=== PATIENT | male | born 1940 | race Caucasian/White ===

== ENCOUNTER 2018-08-27 10:21 | Emergency (ER) | payer MEDICARE, BC ==
--- OUTSIDE RECORDS SUMMARY | 2018-08-27 10:27 | XMS REPORT | Continuity of Care Document ---
:1940 External Reference #:[id number] Author Name Jessica Xena Care Team Providers Name Role Phone Dedrick Coronado MD Primary Care Physician Unavailable Payers Date Identification Numbers Payment Provider Subscriber Effective: 2007 Policy Number: [id number] Medicare Kelly Gonzalez PayID: [id number] [address] [place] [address] Policy Number: [id number] [facility] Lilli Gonzalez Group Number: [id number] [address] PayID: [id number] [place] [address] Advance Directives Description No Information Available Problems Date Description Provider Status Onset: 08/07/2011 Electrocardiogram abnormal Forest Monique M.D. Onset: 08/07/2011 Benign essential hypertension Forest Monique M.D. Onset: 08/07/2011 Mitral valve disorder Forest Monique M.D. Onset: 08/07/2011 Aortic valve disorder Forest Monique M.D. Onset: 08/07/2011 Mixed hyperlipidemia Forest Monique M.D. Onset: 03/08/2012 Preoperative cardiovascular Forest Monique examination Abhilash Onset: 05/11/2014 Dyssomnia Lyly Silverio MD Active Onset: 05/11/2014 Chronic pansinusitis Lyly Silverio MD Active Onset: 05/11/2014 Obesity Lyly Silverio MD Active Onset: 09/06/2014 Obstructive sleep apnea syndrome Malou Diallo DNP, RN, Active [employer]- Family History Date Family Member(s) Observation Comments General Heart Disease General Cancer General Diabetes : (age 76 Father due to Cancer, Years) Colon : (age 86 Mother due to Stroke hypertension,cardiomega Years) ly Social History Type Date Description Comments Sex Unknown Marital Status Lives With Occupation Retired Tobacco Use Start: Unknown Never Smoked Cigarettes ETOH Use Denies alcohol use Tobacco Use Start: Unknown Patient has never smoked Recreational Drug Use Denies Drug Use Smoking Status Reviewed: 08/12/18 Patient has never smoked Exercise Type/Frequency Exercises sporadically Allergies, Adverse Reactions, Alerts Date Description Reaction Status Severity Comments 12/08/2013 Tape Active Paper Tape 09/14/2017 Environmental Active Tree pollen, grass 11/03/2007 NKDA Inactive Medications Medication Date Status Form Strength Qnty SIG Indications Ordering Provider Claritin D 07/20/19 Active Capsules 10mg as needed Iesha 15 Bernardo Romero M.D. Furosemide 05/10/19 Active 20mg 1 tablet Unknown 15 po three times daily Toprol XL 05/10/19 Active 100mg 1 po qd Unknown 15 Lovastatin 07/11/19 Active Tablets 40mg 90tab 1 po qhs Qutaybeh 09 s Bernardo Romero M.D. Fish Oil Active Capsules 1000mg 90cap 1 PO qd Unknown 00 s Aspirin Active Chewtabs 81mg 30uni 1 po bid Unknown 00 ts Systane Active Solution 0.4-0.3% as Unknown 00 directed Vitamin D Active Tablets 400Unit 30tab 1 po bid Unknown 00 s Multivitamins Active Tablets 90tab 1 po qd Unknown 00 s Amoxicillin Active Tablets 500mg 4tabs Take 4 Bobby 00 tabs by [place], mouth 1 M.D. hour before invasive procedure and dental work Irbesartan Active Tablets 300mg 1 by mouth Unknown 00 every day Metamucil Active Powder 1 tsp with Unknown 00 water daily Coricidin HBP Active as Unknown Nighttime 00 directed Multi-Symptom prn Cold Triple [place] Active 1 po qhs Unknown Complex 00 Amlodipine Active Tablets 5mg 1 tablet Shallish, Besylate 00 po daily MD Dedrick Cpap Active Device Unknown 00 Mometasone Active Suspension 50mcg/Act use 2 Unknown Furoate 00 spray in each nostril daily Azelastine HCL Active Solution 0.1% spray 2 Unknown (Nasal) 00 spray in each nostril two times a day as needed Tylenol PM Active Tablets 2 daily as Unknown 00 needed Allergy Active Once every Unknown Injections 00 two weeks Tylenol PM 07/20/19 Hx Liquid 1000-50mg 2 by mouth Qutaybeh Extra Strength 15 - /30ML every S. Unknown [facility] at [facility] bed[facility] , M.D. prn Pataday 05/10/19 Hx 1 gtt each Unknown 15 - eye q a.m. 02/09/20 17 Amlodipine 05/10/19 Hx 10mg 1 po qd Unknown Besylate 15 - 03/03/20 15 Flexeril 01/30/20 Hx Tablets 5mg 40tab 1-2 tablet Dirk 14 - s PO as Willian, 05/10/19 needed M.D. 15 muscle pain Lucernemines 01/29/20 Hx Tablets 5-325mg 60tab 1-2 by Heladio 14 - s mouth Young, 05/10/19 every 4 to M.D. 15 6 hours as needed pain Percocet 12/14/19 Hx Tablets 5-325mg 40tab 1-2 by Dirk 14 - s mouth bid Willian, 05/10/19 as needed M.D. 15 pain Amoxicillin 12/14/19 Hx Capsules 500mg 12cap 4 tablets Dirk 14 - s 1 hour Willian, 05/10/19 before M.D. 15 dental work Ibuprofen 12/07/19 Hx Tablets 800mg by mouth Unknown 14 - three 12/13/19 times a 14 day as needed Voltaren 12/05/19 Hx Gel 1% apply to Unknown 14 - affected 03/03/20 area as 15 directed Medrol Dosepak 01/23/20 Hx Tablets 4mg 1tabs follow Corby Vigil 11 - package Zupruk, 08/07/19 amanda Hung 12 take with food Norvasc 12/07/19 Hx Tablets 5mg 1 po qd Qutaybeh 09 - S. 12/13/19 Heather 11 Abhilash Avapro 07/11/19 Hx Tablets 150mg 90tab 1 po qd Qutaybeh 09 - s S. 07/11/19 Heather 10 Abhilash Vit C 07/11/19 Hx Tablets 500mg, 1 po qd Qutaybeh 09 - S. 05/12/19 hafeliz 11 Abhilash Vit D 07/11/19 Hx 1000 1po qd Qutaybeh 09 - S. 05/12/19 Heather 11 Abhilash Glucosamine-Ch 11/03/19 Hx Capsules 500-400 1 PO qd Qutaybeh ondroitin 08 - S. 07/11/19 Heather Leslie M.D. Claritin 11/03/19 Hx Tablets 10mg 30tab PO qd prn Qutaybeh 08 - s S. 07/20/19 Heather 15 Abhilash Toprol XL 11/03/19 Hx Tablets ER 100mg 1 PO qd Qutaybeh 08 - 24HR S. 12/13/19 Heather Braxton M.D. Flomax Hx Caps ER 0.4mg 90cap 1 PO qd Unknown 00 - 24HR s 05/25/19 13 Rhinocort Aqua Hx Suspension 32mcg/Act 1unit 1 Galvin Unknown 00 - s Each Willian 07/11/19 qd 09 Norvasc Hx Tablets 5mg 135ta 1and 1/2 Qutaybeh 00 - bs PO qd S. 12/07/19 Heather Douglass M.D. Dyazide Hx Capsules 37.5-25 90cap 1 PO qd Unknown 00 - s 12/07/19 09 Zestril Hx Tablets 40mg 30tab 1 PO qd Unknown 00 - s 07/11/19 09 Proscar Hx Tablets 5mg 30tab 1 PO qd Unknown 00 - s 05/25/19 13 Lovastatin Hx Tablets 20mg 90tab PO QHS Unknown 00 - s 07/11/19 [address] 375mg 1 po bid Unknown 12/13/19 11 Lasix Hx Tablets 40mg 1 po qd Unknown 12/13/19 14 Avapro Hx Tablets 300mg 1 po qd Unknown 12/13/19 14 Coricidin Hx Liquid 325-12.5m as Unknown Nighttime 00 - g/15ML directed Cold-Cough 02/09/20 17 Vit C Hx Tablets 250mg 1 po qd Unknown 02/09/20 17 Naproxen Hx Tablets 375mg 1 po tid Unknown 00 - prn 05/25/19 13 Norvasc Hx Tablets 10mg 1 po qd Unknown - 12/13/19 14 Tylenol PM Hx Tablets 500-25mg 30tab 2 po qhs Unknown Extra Strength 00 - s 12/13/19 14 Famotidine Hx Tablets 40mg 30tab 1 po qhs Unknown 00 - s 08/07/19 12 Durezol Hx Emulsion 0.05% bid Unknown 12/09/19 14 Fluticasone Hx Suspension 50mcg/Act 16gm 2 sprays Unknown Propionate 00 - each 07/19/19 nostril 15 daily as needed Systane Hx 1 gtt each Unknown Overnight 00 - eye tid Therapy 02/09/20 prn Lubricant Eye 17 Flonase Hx Unknown Allergy Relief - 03/03/20 15 Medications Administered in Office Medication Date Status Form Strength Qnty SIG Indications Ordering Provider Influenza Administered Injection Unknown Virus Vaccine 014 Immunizations CPT Code Status Date Vaccine Lot # [id number] Given 02/07/2011 Pneumonia Vaccine Vital Signs Date Vital Result Comment 08/12/2018 3:34pm Height 70 inches 5'10" Weight 245.75 lb with shoes Heart Rate 76 /min regular BP Systolic Sitting 132 mmHg left arm BP Diastolic Sitting 70 mmHg left arm BP Systolic Standing 142 mmHg left arm BP Diastolic Standing 70 mmHg left arm BMI (Body Mass Index) 35.3 kg/m2 Ejection Fraction 50-55% Echocardiogram 07/01/2016 10/18/2017 10:57am Height 70 inches 5'10" Weight 245.12 lb Heart Rate 60 /min BP Systolic 148 mmHg BP Diastolic 78 mmHg Respiratory Rate 16 /min BMI (Body Mass Index) 35.2 kg/m2 Ejection Fraction 50-55% 07-01-2016 09/30/2017 2:38pm Heart Rate 84 /min Respiratory Rate 18 /min Body Temperature 98.4 F 09/20/2017 10:41am Heart Rate 72 /min BP Systolic 140 mmHg BP Diastolic 70 mmHg Respiratory Rate 16 /min Body Temperature 97.0 F 09/14/2017 9:29am Height 70 inches 5'10" Weight 239.38 lb Heart Rate 60 /min BP Systolic Sitting 126 mmHg Rue large cuff BP Diastolic Sitting 66 mmHg Rue large cuff Respiratory Rate 20 /min O2 % BldC Oximetry 96 % On Ra BMI (Body Mass Index) 34.3 kg/m2 08/09/2017 10:28am Heart Rate 84 /min Respiratory Rate 18 /min Body Temperature 98.0 F 07/30/2017 10:20am Height 70 inches 5'10" Weight 240.00 lb Heart Rate 72 /min BP Systolic Sitting 132 mmHg BP Diastolic Sitting 84 mmHg Respiratory Rate 18 /min Body Temperature 97.9 F BMI (Body Mass Index) 34.4 kg/m2 02/10/2017 9:15am Height 70 inches 5'10" Weight 247.00 lb Heart Rate 70 /min Respiratory Rate 16 /min Body Temperature 97.2 F BMI (Body Mass Index) 35.4 kg/m2 02/09/2017 1:51pm Height 70 inches 5'10" Weight 240.50 lb Heart Rate 72 /min BP Systolic Sitting 164 mmHg LA, reg BP Diastolic Sitting 84 mmHg LA, reg BMI (Body Mass Index) 34.5 kg/m2 Ejection Fraction 50%-55% 07/01/16 06/25/2016 1:39pm Height 70 inches 5'10" Weight 250.00 lb Heart Rate 84 /min BP Systolic Sitting 144 mmHg LA lrg cuff BP Diastolic Sitting 66 mmHg LA lrg cuff BMI (Body Mass Index) 35.9 kg/m2 Ejection Fraction 50% - 55% echo 03/13/15 05/20/2016 10:53am Height 70 inches 5'10" Weight 245.00 lb Heart Rate 71 /min BP Systolic 134 mmHg BP Diastolic 70 mmHg Pain Level 2 BMI (Body Mass Index) 35.1 kg/m2 10/03/2015 1:40pm Height 70 inches 5'10" Weight 237.00 lb with shoes Heart Rate 78 /min BP Systolic 140 mmHg LA reg cuff BP Diastolic 72 mmHg LA reg cuff BMI (Body Mass Index) 34.0 kg/m2 Ejection Fraction 50%-55% echo 03/13/15 05/20/2015 11:02am Height 70 inches 5'10" Weight 248.00 lb BMI (Body Mass Index) 35.6 kg/m2 03/06/2015 8:53am Height 70 inches 5'10" Weight 248.00 lb Heart Rate 77 /min BP Systolic Sitting 126 mmHg BP Diastolic Sitting 70 mmHg Respiratory Rate 18 /min O2 % BldC Oximetry 97 % BMI (Body Mass Index) 35.6 kg/m2 03/04/2015 1:17pm Height 70 inches 5'10" Weight 247.00 lb with shoes Heart Rate 54 /min BP Systolic Sitting 110 mmHg Ra lg cuff BP Diastolic Sitting 70 mmHg Ra lg cuff BP Systolic Standing 114 mmHg Ra lg cuff BP Diastolic Standing 70 mmHg Ra lg cuff Respiratory Rate 16 /min BMI (Body Mass Index) 35.4 kg/m2 02/04/2015 2:28pm Height 70 inches 5'10" Weight 246.00 lb Pain Level 0 BMI (Body Mass Index) 35.3 kg/m2 12/17/2014 2:40pm Height 70 inches 5'10" Weight 240.00 lb Pain Level 2 BMI (Body Mass Index) 34.4 kg/m2 11/27/2014 11:28am Height 70 inches 5'10" Weight 240.00 lb Heart Rate 66 /min BP Systolic 138 mmHg BP Diastolic 86 mmHg Respiratory Rate 14 /min O2 % BldC Oximetry 96 % BMI (Body Mass Index) 34.4 kg/m2 10/22/2014 10:50am Height 70 inches 5'10" Weight 240.00 lb Pain Level 0 BMI (Body Mass Index) 34.4 kg/m2 10/16/2014 10:12am Height 70 inches 5'10" Weight 240.00 lb Heart Rate 75 /min BP Systolic Sitting 140 mmHg BP Diastolic Sitting 82 mmHg O2 % BldC Oximetry 97 % BMI (Body Mass Index) 34.4 kg/m2 Neck Circumference in inches 20.5 09/24/2014 1:52pm Height 70 inches 5'10" Weight 240.00 lb Pain Level 0 BMI (Body Mass Index) 34.4 kg/m2 09/21/2014 11:09am Height 70 inches 5'10" Weight 240.00 lb Heart Rate 84 /min BP Systolic Sitting 136 mmHg BP Diastolic Sitting 80 mmHg O2 % BldC Oximetry 97 % BMI (Body Mass Index) 34.4 kg/m2 Neck Circumference in inches 20.5 09/03/2014 11:23am Height 70 inches 5'10" Weight 240.00 lb Pain Level 0 BMI (Body Mass Index) 34.4 kg/m2 08/15/2014 11:27am Height 70 inches 5'10" Weight 240.00 lb Heart Rate 76 /min BP Systolic 153 mmHg BP Diastolic 86 mmHg Body Temperature 96.1 F Pain Level 5 BMI (Body Mass Index) 34.4 kg/m2 07/19/2014 2:12pm Height 70 inches 5'10" Weight 246.25 lb Heart Rate 74 /min BP Systolic Sitting 132 mmHg LA, large BP Diastolic Sitting 72 mmHg LA, large BMI (Body Mass Index) 35.3 kg/m2 07/16/2014 9:04am Height 70 inches 5'10" Weight 246.00 lb Pain Level 0 BMI (Body Mass Index) 35.3 kg/m2 05/11/2014 9:04am Height 70 inches 5'10" Weight 246.00 lb Heart Rate 71 /min BP Systolic Sitting 146 mmHg BP Diastolic Sitting 80 mmHg Respiratory Rate 20 /min Body Temperature 97.8 F O2 % BldC Oximetry 97 % BMI (Body Mass Index) 35.3 kg/m2 Neck Circumference in inches 20 03/05/2014 10:59am Height 70 inches 5'10" Weight 230.00 lb Body Temperature 98.0 F BMI (Body Mass Index) 33.0 kg/m2 01/01/2014 11:21am Height 70 inches 5'10" Weight 230.00 lb Heart Rate 72 /min BP Systolic 136 mmHg BP Diastolic 81 mmHg BMI (Body Mass Index) 33.0 kg/m2 12/22/2013 4:18pm Height 70 inches 5'10" Weight 238.50 lb W/shoes Heart Rate 72 /min BP Systolic Sitting 104 mmHg BP Diastolic Sitting 56 mmHg Respiratory Rate 16 /min BMI (Body Mass Index) 34.2 kg/m2 12/13/2013 2:50pm Height 70 inches 5'10" Weight 230.00 lb Heart Rate 77 /min BP Systolic 138 mmHg BP Diastolic 78 mmHg BMI (Body Mass Index) 33.0 kg/m2 06/09/2013 10:25am Height 67 inches 5'7" Weight 234.00 lb Heart Rate 80 /min BP Systolic Sitting 138 mmHg BP Diastolic Sitting 70 mmHg Respiratory Rate 16 /min BMI (Body Mass Index) 36.6 kg/m2 10/07/2012 2:39pm Height 67 inches 5'7" Weight 238.00 lb Heart Rate 76 /min BP Systolic Sitting 136 mmHg BP Diastolic Sitting 72 mmHg Respiratory Rate 20 /min BMI (Body Mass Index) 37.3 kg/m2 05/25/2012 1:07pm Height 67 inches 5'7" Weight 237.00 lb Heart Rate 64 /min BP Systolic 130 mmHg BP Diastolic 74 mmHg BMI (Body Mass Index) 37.1 kg/m2 03/08/2012 9:27am Height 67 inches 5'7" Weight 233.00 lb Heart Rate 72 /min BP Systolic Sitting 140 mmHg BP Diastolic Sitting 78 mmHg Respiratory Rate 20 /min BMI (Body Mass Index) 36.5 kg/m2 08/07/2011 9:49am Height 67 inches 5'7" Weight 236.00 lb Heart Rate 66 /min BP Systolic Sitting 144 mmHg L BP Diastolic Sitting 68 mmHg L BMI (Body Mass Index) 37.0 kg/m2 08/07/2011 9:44am Height 67 inches 5'7" 12/12/2010 10:20am Height 67 inches 5'7" Weight 234.00 lb Heart Rate 60 /min BP Systolic Sitting 148 mmHg BP Diastolic Sitting 86 mmHg BMI (Body Mass Index) 36.6 kg/m2 05/12/2010 10:10am Height 67 inches 5'7" Weight 238.00 lb Heart Rate 76 /min BP Systolic Sitting 162 mmHg BP Diastolic Sitting 88 mmHg BMI (Body Mass Index) 37.3 kg/m2 07/10/2009 11:05am Height 67 inches 5'7" Weight 231.00 lb Heart Rate 64 /min BP Systolic Sitting 160 mmHg L BP Diastolic Sitting 80 mmHg L BMI (Body Mass Index) 36.2 kg/m2 12/06/2008 8:52am Height 67 inches 5'7" Weight 241.00 lb Heart Rate 80 /min BP Systolic Sitting 130 mmHg BP Diastolic Sitting 74 mmHg BMI (Body Mass Index) 37.7 kg/m2 07/10/2008 9:53am Weight 239.00 lb Heart Rate 72 /min BP Systolic Sitting 162 mmHg BP Diastolic Sitting 90 mmHg Respiratory Rate 16 /min 01/05/2008 10:29am Height 67 inches 5'7" Weight 227.00 lb Heart Rate 76 /min BP Systolic Sitting 150 mmHg L BP Diastolic Sitting 78 mmHg L BMI (Body Mass Index) 35.5 kg/m2 11/03/2007 10:06am Height 67 inches 5'7" Weight 228.00 lb Heart Rate 63 /min BP Systolic Sitting 170 mmHg L BP Diastolic Sitting 78 mmHg L BMI (Body Mass Index) 35.7 kg/m2 Results Test Date Facility Test Result H/L Range Note Laboratory test 08/06/2016 [facility] Cytology SEE RESULT [address] [employer]-Sexual [place] [address] [phone] Type & Screen 01/16/2014 [facility] Patient Blood A Negative N [address] [place] [address] [phone] Antibody Screen NEGATIVE N Lipid Profile 01/01/2014 [facility] Triglycerides 119 mg/dL N 3, 4 (Trig/Chol/HDL) [address] [place] [address] [phone] Cholesterol 128 mg/dL N 5 HDL Cholesterol 35.1 mg/dL N 6 LDL Cholesterol 69 mg/dL N 7 Comp Metabolic Panel 01/01/2014 [facility] Sodium 136 mmol/L N 133-[address] [place] [address] [phone] Potassium 4.0 mmol/L N 3.7-5.6 Chloride 100 mmol/L Low 101-111 Co2 Carbon Dioxide 31 mmol/L N 22-32 Anion Gap 5 mmol/L N 2-11 Glucose 95 mg/dL N 70-100 Blood Urea Nitrogen 12 mg/dL N 6-24 Creatinine 0.88 mg/dL N 0.67-1.17 BUN/Creatinine Ratio 13.6 N 8-20 Calcium 9.2 mg/dL N 8.6-10.3 Total Protein 7.6 g/dL N 6.4-8.9 Albumin 4.2 g/dL N 3.2-5.2 Globulin 3.4 g/dL N 2-4 Albumin/Globulin Ratio 1.2 N 1-3 Total Bilirubin 0.50 mg/dL N 0.2-1.0 Alkaline Phosphatase 94 U/L N 34-104 Alt 22 U/L N 7-52 Ast 21 U/L N 13-39 Egfr Non- 85.4 N >60 Egfr 109.8 N >60 8 Laboratory test finding 01/01/2014 [facility] Inr 0.94 N 0.85- 1.[address] [place] [address] [phone] Activated Partial Thrombo Time 32.0 seconds N 24.0-36.1 Urinalysis Profile 01/01/2014 [facility] Urine Color Yellow N [address] [place] [address] [phone] Urine Appearance Clear N Urine Specific [place] 1.008 Low 1.010-1.030 Urine pH 5.0 N 5-9 Urine Urobilinogen Negative N Negative Urine Ketones Negative N Negative Urine Protein Negative N Negative Urine Leukocytes Negative N Negative Urine Blood Negative N Negative * * Abnormal Negative 9 Urine Nitrite Negative N Negative Urine Bilirubin Negative N Negative Urine Glucose Negative N Negative CBC Auto 01/01/2014 [facility] White Blood 11.1 10^3/uL High 4.8-10.[address] [place] [address] [phone] Red Blood Count 5.01 10^6/uL N 4.0-5.4 Hemoglobin 14.9 g/dL N 14.0-18.0 Hematocrit 44 % N 42-52 Mean Corpuscular Volume 89 fL N 80-94 Mean Corpuscular Hemoglobin 30 pg N 27-31 Mean Corpuscular HGB Conc 34 g/dL N 31-36 Red Cell Distribution Width 14 % N 10.5-15 Platelet Count 263 10^3/uL N 150-450 Mean Platelet Volume 8 um3 N 7.4-10.4 Abs Neutrophils 7.2 10^3/uL N 1.5-7.7 Abs Lymphocytes 2.3 10^3/uL N 1.0-4.8 Abs Monocytes 1.1 10^3/uL High 0-0.8 Abs Eosinophils 0.4 10^3/uL N 0-0.6 Abs Basophils 0.1 10^3/uL N 0-0.2 Abs Nucleated RBC 0 10^3/uL N Granulocyte % 64.6 % N 38-83 Lymphocyte % 21.1 % Low 25-47 Monocyte % 10.2 % High 1-9 Eosinophil % 3.3 % N 0-6 Basophil % 0.8 % N 0-2 Nucleated Red Blood Cells % 0 N Laboratory test 01/01/2014 [facility] Creatine < 10 U/L Low 10 -223 [address] [place] [address] [phone] TSH (Thyroid Stimulating Horm) 1.36 IU/mL N 0.34-5.60 11 CBC Auto Diff 05/26/2012 [facility] White Blood 9.5 10^3/uL 4.8-10.[address] [place] [address] [phone] Red Blood Count 5.03 10^6/uL 4.0-5.4 Hemoglobin 15.0 g/dL 14.0-18.0 Hematocrit 45 % 42-52 Mean Corpuscular Volume 90 fL 80-94 Mean Corpuscular Hemoglobin 30 pg 27-31 Mean Corpuscular HGB Conc 33 g/dL 31-36 Red Cell Distribution Width 14 % 10.5-15 Platelet Count 235 10^3/uL 150-450 Mean Platelet Volume 9 um3 7.4-10.4 Abs Neutrophils 5.7 10^3/uL 1.5-7.7 Abs Lymphocytes 2.5 10^3/uL 1.0-4.8 Abs Monocytes 1.0 10^3/uL High 0-0.8 Abs Eosinophils 0.3 10^3/uL 0-0.6 Abs Basophils 0.1 10^3/uL 0-0.2 Abs Nucleated RBC 0 10^3/uL Granulocyte % 59.3 % 38-83 Lymphocyte % 25.7 % 25-47 Monocyte % 10.6 % High 1-9 Eosinophil % 3.6 % 0-6 Basophil % 0.8 % 0-2 Nucleated Red Blood Cells % 0 Basic Metabolic Panel 05/26/2012 [facility] Sodium 138 mmol/L 133-[address] [place] [address] [phone] Potassium 3.9 mmol/L 3.5-5.0 Chloride 101 mmol/L 101-111 Co2 Carbon Dioxide 28.0 mmol/L 22-32 Anion Gap 9.0 mmol/L 2-11 Glucose 95 mg/dL 70-100 Blood Urea Nitrogen 14 mg/dL 6-24 Creatinine 1.00 mg/dL 0.50-1.40 BUN/Creatinine Ratio 14.0 8-20 Calcium 8.9 mg/dL 8.1-9.9 Egfr Non- 73.9 >60 Egfr 95.0 >60 12 Laboratory test finding 05/26/2012 [facility] Inr 0.90 0.82- 1.[address] [place] [address] [phone] Activated Partial Thrombo Time 31.3 sec 22.18-37.18 14 Type & Screen 05/26/2012 [facility] Patient Blood Type A Negative [address] [place] [address] [phone] Antibody Screen NEGATIVE CBC With 06/25/2010 [facility] White Blood 7.8 CUMM 4.8-10.8 Electronic Diff [address] [place] [address] [phone] Red Cell Count 4.63 CUMM 4.6-6.2 Hemoglobin 14.4 g/dL 14.0-18.0 Hematocrit 42 % 42-52 Mean Corpuscular Volume 90 um3 80-94 Mean Corpuscular Hemoglob 31 pg 27-31 Mean Corpuscular HGB Cone 34 g/dL 32-36 Redcell Distribution WDTH 13 % 10.5-15 Platelet Count 217 CUMM 150-450 Mean Platelet Volume 8.6 um3 7.4-10.4 Gran % 57.0 % 38-83 Lymph % 27.2 % 25-47 Mononuclear % 10.8 % High 1-9 Eosinophil % 4.4 % 0-6 Basophil % 0.6 % 0-2 Abs Lymphs 2.1 1.0-4.8 Abs Mononuclear 0.8 0-0.8 Absolute Neutrophil Count 4.4 1.5-7.7 Abs Eosinophils 0.3 0-0.6 Abs Basophils 0 0-0.2 Comp Metabolic Panel 06/25/2010 [facility] Sodium 140 mmol/L 135-[address] [place] [address] [phone] Potassium 4.2 mmol/L 3.5-5.0 Chloride 102 mmol/L 101-111 Co2 (Carbon Dioxide) 30.0 mmol/L 22-32 Anion Gap 8.0 mmol/L 2-11 15 Glucose 113 mg/dL High 70-100 BUN 18 mg/dL 6-24 Creatinine 0.87 mg/dL 0.50-1.40 One Over Creatinine 1.10 BUN/Creatinine Ratio 20.7 High 8-20 Calcium 8.5 mg/dL 8.1-9.9 Total Protein 6.3 GM/DL 6.2-8.1 Albumin 3.8 GM/DL 3.2-5.2 Globulin 2.5 GM/DL 2-4 Albumin/Globulin Ratio 1.5 1-3 Bilirubin Total 0.7 mg/dL 0.4-1.5 16 Alkaline Phosphatase 71 U/L 39-117 Alt (SGPT) 25 U/L 17-63 Ast (Sgot) 22 U/L 12-42 eGFR Non- 87.3 > 60 eGFR 112.2 > 60 17 Laboratory test 06/25/2010 [facility] Troponin-I 0.01 NG/ML 0 -0.06 [address] [place] [phone] [phone] Protime 06/25/2010 [facility] Inr 0.94 0.82-1.17 19 [facility] [email or web address] [address] [phone] Protime 11.1 SEC 10.2-14.8 20 Laboratory test 06/25/2010 [facility] PTT (Aptt) 28.8 25.15- 38.[address] [place] [address] [phone] D Dimer Quantitative 552 High Less Than 230 21 1 SEE RESULT BELOW Name: KELLY GONZALEZ : [address]: Manuel Wayne MD Acct: [id number] Unit: [id number] AGE: 76 Location: THYROID Re08/06/16 SEX: M Status: REG REF SPEC: [id number] TYLER: 08/06/16-[address]: Taran Franco MD REQ: [id number] RECD: 08/06/16 STATUS: JÚNIOR JADE DR: Manuel Coronado MD _ ORDERED: FN ASP DEEP/2, FNA Imme St Add/2, FNA IMMEDIATE S/2 FINAL DIAGNOSIS 1) Thyroid, right, Ultrasound guided, fine needle aspiration: --Benign thyroid nodule- colloid/hyperplastic type ([place] Class II). 2) Thyroid, left, Ultrasound guided, fine needle aspiration: --Benign thyroid nodule- colloid/hyperplastic type ([place] Class II). 1) The specimen demonstrates moderate watery colloid, a modest amount of benign appearing follicular epithelium arranged in uniform sheets, medium sized follicles and only occasional small groups. No features of papillary carcinoma are seen. In this clinical setting the risk of malignancy is less than 3%. Clinical management of this thyroid nodule should be based on clinical and radiographic features as well as the above. 2) The specimen demonstrates moderate watery colloid, a modest amount of benign appearing follicular epithelium arranged in uniform sheets, medium sized follicles and only occasional small groups. No features of papillary carcinoma are seen. In this clinical setting the risk of malignancy is less than 3%. Clinical management of this thyroid nodule should be based on clinical and radiographic features as well as the above. 1) CONTINUED ON NEXT PAGE * ML=Testing performed at Main Lab DEPARTMENT OF PATHOLOGY, [address] [place] [address] Leandro Dean M.D. Director [facility] # [id number] RUN DATE: 08/06/16 [facility] LAB LIVE PAGE 2 Patient: KELLY GONZALEZ [id number] (Continued) SPECIMEN(S) RECEIVED: (Continued) #1. THYROID RIGHT - US GUIDED FINE NEEDLE ASPIRATION, #2. THYROID LEFT - US GUIDED FINE NEEDLE ASPIRATION CLINICAL HISTORY 1) Right thyroid nodule 2.3cm 2) Left thyroid nodule 1.7cm IMMEDIATE INTERPRETATION 1) Pass 1-inadequate, pass 2-adequate 2) Pass 1-3 inadequate, pass 4-adequate GROSS DESCRIPTION 1) 4- alcohol fixed slide(s) 2- passes 2) 8- alcohol fixed slide(s) 4- passes Signed (signature on file) Leandro Dean MD [id number] END OF REPORT * ML=Testing performed at Main Lab DEPARTMENT OF PATHOLOGY, [address] [place] [address] Leandro Dean M.D. Director [facility] # [id number] 2 LOC PRIM OSTEOART-L/LEG 3 PT HAD BANANA, TOAST AND YOGURT AT 0700. ORDER DID NOT~SPECIFY FASTING. 4 Desirable <150 Borderline high 150-199 High 200-499 Very High >500 5 Desirable <200 Borderline high 200-239 High >239 6 Low <40 Desirable: 40-60 High: >60 7 Desirable <100 Near Optimal 100-129 Borderline high 130-159 High 160-189 Very High >189 8 Because ethnic data is not always readily available, this report includes an eGFR for both -Americans and non- Americans. The National Kidney Disease Education Program (NKDEP) does not endorse the use of the MDRD equation for patients that are not between the ages of 18 and 70, are , have extremes of body size, muscle mass, or nutritional status, or are non- or non-. According to the National Kidney Foundation, irrespective of diagnosis, the stage of the disease is based on the level of kidney function: Stage Description GFR(mL/min/1.73 m(2)) 1 Kidney damage with normal or decreased GFR 90 2 Kidney damage with mild decrease in GFR 60-89 3 Moderate decrease in GFR 30-59 4 Severe decrease in GFR 15-29 5 Kidney failure <15 (or dialysis) 9 *Ascorbic acid is present which may interfere with detection of blood. 10 PT HAD BANANA, TOAST AND YOGURT AT 0700. ORDER DID NOT SPECIFY FASTING. 11 PT HAD BANANA, TOAST AND YOGURT AT 0700. ORDER DID NOT SPECIFY FASTING. 12 Because ethnic data is not always readily available, this report includes an eGFR for both -Americans and non- Americans. The National Kidney Disease Education Program (NKDEP) does not endorse the use of the MDRD equation for patients that are not between the ages of 18 and 70, are , have extremes of body size, muscle mass, or nutritional status, or are non- or non-. According to the National Kidney Foundation, irrespective of diagnosis, the stage of the disease is based on the level of kidney function: Stage Description GFR(mL/min/1.73 m(2)) 1 Kidney damage with normal or decreased GFR 90 2 Kidney damage with mild decrease in GFR 60-89 3 Moderate decrease in GFR 30-59 4 Severe decrease in GFR 15-29 5 Kidney failure <15 (or dialysis) 13 The INR(International Normalized Ratio) was adopted by the World Health Organization (WHO) in 1982 as a standardized system of reporting PT (Prothrombin Time). The Centers for Disease Control (CDC) states that reporting of PT results in INR only is the preferred method. Recommended INR for Patients on Oral Anticoagulants Prophylaxis 2.0 - 3.0 Treatment of thrombosis 2.0 - 3.0 Prevention of embolism 2.0 - 3.0 Prevention of embolism from prosthetic heart valves 2.5 - 3.5 14 SDS 06/02/12 15 Anion gap measurement may be of limited value in the presence of any alkalosis, especially in a combined acid base disorder. . 16 A metabolite of Naproxen, O-desmethylnaproxen, has been shown to interfere with the Jendrassik-Sriram method for measuring total bilirubin. Samples from patients who have taken Naproxen have shown spurious elevation in total bilirubin levels. 17 Because ethnic data is not always readily available, this report includes an eGFR for both -Americans and non- Americans. The National Kidney Disease Education Program (NKDEP) does not endorse the use of the MDRD equation for patients that are not between the ages of 18 and 70, are , have extremes of body size, muscle mass, or nutritional status, or are non- or non-. According to the National Kidney Foundation, irrespective of diagnosis, the stage of the disease is based on the level of kidney function: Stage Description GFR(mL/min/1.73 m(2)) 1 Kidney damage with normal or decreased GFR 90 2 Kidney damage with mild decrease in GFR 60-89 3 Moderate decrease in GFR 30-59 4 Severe decrease in GFR 15-29 5 Kidney failure <15 (or dialysis) 18 New Reference Range and Interpretation effective 02/10/2002 TnI (ng/ml) INTERPRETATION Less Than 0.06 ng/mL NOT SUPPORTIVE OF DIAGNOSIS OF IA 0.06 - 0.50 ng/ml INDETERMINATE: SUGGEST SERIAL STUDIES IF CLINICALLY INDICATED. Greater than 0.5 ng/mL CONSISTENT WITH DIAGNOSIS OF IA . 19 Recommended INR for Patients on Oral Anticoagulants Prophylaxis 2.0 - 3.0 Treatment of thrombosis 2.0 - 3.0 Prevention of embolism 2.0 - 3.0 Prevention of embolism from prosthetic heart valves 2.5 - 3.5 20 DIAGNOSIS,TREATMENT,AND THERAPY MUST BE BASED ON THE INR VALUE ALONE. 21 VERBAL TO DARRIUS FERNANDO (ED) BY LINDA at 0658 on 06/25/10. Results read back accurately. Procedures Date Code Description Status 08/12/2018 25657 EKG Tracing & Interpretation Completed 10/18/2017 18683 EKG Tracing & Interpretation Completed 09/20/2017 90606 Excise Benign lesion 1.1-2CM Trunk/Arm/Leg Completed 09/20/2017 52490 Excision, Benign Trunk,Arms,Legs 0.6 CM To 1.0 CM Completed 07/30/2017 28038 I&D Of Abscess Complicated Completed 02/09/2017 99907 EKG Tracing & Interpretation Completed 07/01/2016 50411 ECHO Transthoracic, Real-Time 2D With Doppler And Color Completed Flow 06/25/2016 46552 EKG Tracing & Interpretation Completed 10/03/2015 20715 EKG Tracing & Interpretation Completed 03/13/2015 84840 ECHO Transthoracic, Real-Time 2D With Doppler And Color Completed Flow 03/04/2015 63248 EKG Tracing & Interpretation Completed 09/21/2014 71115 Polysomnography Sleep Staging 4+ Parameters W/Cpap Completed 09/06/2014 03098 Polysomnography Sleep Staging 4+ Parameters Completed 08/15/2014 15040 Closed TX Of Greater Humeral Tuberosity FX;W/O Completed Manipulation 07/19/2014 19667 EKG Tracing & Interpretation Completed 03/05/2014 35911 Rad Exam; Knee, Ap&L Completed 03/05/2014 53623 Xray Knee 3 Views Completed 01/24/2014 53896 EKG, Interpretation Only Completed 01/23/2014 38856 TKR Total Knee Replacement Completed 01/23/2014 54057 TKR Total Knee Replacement Completed 01/01/2014 84532 Xray Knee 3 Views Completed 01/01/2014 48107 Xray Knee 3 Views Completed 01/01/2014 73677 Rad Exam; Knee, Ap&L Completed 01/01/2014 67030 Rad Exam; Knee, Ap&L Completed 12/22/2013 98559 EKG Tracing & Interpretation Completed 06/09/2013 83745 EKG Tracing & Interpretation Completed 06/07/2013 59239 ECHO Transthoracic, Real-Time 2D With Doppler And Color Completed Flow 10/07/2012 70900 EKG Tracing & Interpretation Completed 06/02/2012 16540 Laminectomy W/Expl &/Or Decomp Spinal Cord/Cauda Completed Equina;Thoracic 05/25/2012 51548 EKG Tracing & Interpretation Completed 03/08/2012 59166 EKG Tracing & Interpretation Completed 03/01/2012 53003 ECHO Transthoracic, Real-Time 2D With Doppler And Color Completed Flow 08/07/2011 16449 EKG Tracing & Interpretation Completed 12/12/2010 82713 EKG Tracing & Interpretation Completed 12/09/2010 93008 ECHO Transthoracic, Real-Time 2D With Doppler And Color Completed Flow 06/26/2010 40318 Treadmill Interp/Report Only Completed 06/26/2010 71309 Stress Test Supervsn W/Out I/R Completed 05/12/2010 34439 EKG Tracing & Interpretation Completed 07/30/2009 28880 ECHO Transthoracic, Real-Time 2D With Doppler And Color Completed Flow 07/10/2009 64188 EKG Tracing & Interpretation Completed 07/30/2008 81131 Color Doppler Completed 07/30/2008 01053 Pulse Doppler & Continuous Wave Completed 07/30/2008 19685 Echocardiogram Completed 07/30/2008 43135 ECHO Transthoracic, Real-Time 2D With Doppler And Color Completed Flow 07/10/2008 10976 EKG Tracing & Interpretation Completed 12/13/2007 06720 Stress Test Supervsn W/Out I/R Completed 12/13/2007 68896 Stress Test Supervsn W/Out I/R Completed 12/13/2007 83737 Treadmill Interp/Report Only Completed 12/07/2007 43770 ECHO/Stress Completed 12/07/2007 77006 Stress Test Completed 12/07/2007 91605 Stress Test Completed 11/29/2007 80170 Color Doppler Completed 11/29/2007 23873 Color Doppler Completed 11/29/2007 80096 Color Doppler Completed 11/29/2007 66961 Pulse Doppler & Continuous Wave Completed 11/29/2007 20580 Pulse Doppler & Continuous Wave Completed 11/29/2007 10513 Echocardiogram Completed 11/29/2007 90707 Echocardiogram Completed 11/29/2007 99681 Echocardiogram Completed 11/03/2007 68612 EKG Tracing & Interpretation Completed 11/03/2007 52174 EKG Tracing & Interpretation Completed Encounters Type Date Location Provider Dx Diagnosis Office Visit 10/18/2017 [facility] Qutaybeh S. G47.33 Obstructive sleep 11:20a Abhilash Romero apnea (adult) (pediatric) I71.9 Aortic aneurysm of unspecified site, without rupture I10 Essential (primary) hypertension I35.1 Nonrheumatic aortic (valve) insufficiency I34.0 Nonrheumatic mitral (valve) insufficiency R94.31 Abnormal electrocardiogram [ECG] [EKG] Office Visit 09/14/2017 [facility] G47.33 Obstructive sleep 9:45a Sleep Services Of ROBERTO Diallo, RN, apnea (adult) [facility] TRAVEL AGENCY MANAGER-BC (pediatric) Z68.34 Body mass index (BMI) 34.0-34.9, adult Office Visit 07/30/2017 10:30a Surgical Prasanna Jean-Baptiste, L02.212 [facility] , [place] abscess of back [any part, except buttock] Office Visit 02/10/2017 9:00a Orthopedic Spencer Dorsey, Z96.651 Presence of Services Of Abhilash right artificial C.M.A. knee joint Z96.652 Presence of left artificial knee joint Office Visit 02/09/2017 2:00p Lisa Julian S. I71.9 Aortic aneurysm Cardiology Abhilash Romero of unspecified site, without rupture I10 Essential (primary) hypertension I35.1 Nonrheumatic aortic (valve) insufficiency I34.0 Nonrheumatic mitral (valve) insufficiency Office Visit 06/25/2016 2:20p [facility] Iesha S. 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 G47.33 Obstructive sleep 2:20p Cardiology Abhilash Romero apnea (adult) (pediatric) I10 Essential (primary) hypertension I34.0 Nonrheumatic mitral (valve) insufficiency I35.1 Nonrheumatic aortic (valve) insufficiency E66.9 Obesity, unspecified R94.31 Abnormal electrocardiogram [ECG] [EKG] Office Visit 05/20/2015 Orthopedic Spencer Dorsey, S46.011A Strain of 11:00a Services Of Abhilash musc/nelsy the C.M.A. rotator cuff of right shoulder, init Office Visit 03/06/2015 [facility] Lyly G47.33 Obstructive sleep 9:00a Sleep Services Of MD Nusrat apnea (adult) Reel Hooker (pediatric) E66.9 Obesity, unspecified Office Visit 03/04/2015 1:40p [facility] Anatoliytashobha S. I10 Essential Of Rachelle Romero M.D. (primary) hypertension E66.9 Obesity, unspecified E78.4 Other hyperlipidemia I34.0 Nonrheumatic mitral (valve) insufficiency I35.1 Nonrheumatic aortic (valve) insufficiency R60.0 Localized edema Office Visit 02/04/2015 2:45p Orthopedic Elodia Z96.652 Presence of left Services Of JER Otero artificial knee C.M.A. joint Office Visit 12/17/2014 2:45p Orthopedic Spencer Dorsey, 812.03 FX Humerus Services Of Abhilash Greater C.M.ADerek Tuberosity Closed V54.11 [facility] Traumatic Fracture Of Upper Arm Office Visit 11/27/2014 [facility] 327.23 Obstructive Sleep 11:30a Sleep Services Of ROBERTO Diallo RN, Apnea Adult & [facility] Pediatric Office Visit 10/16/2014 [facility] 327.23 Obstructive Sleep 10:00a Sleep Services Of ROBERTO Diallo RN, Apnea Adult & [facility] Pediatric Office Visit 09/21/2014 [facility] 327.23 Obstructive Sleep 11:00a Sleep Services Of ROBERTO Diallo RN, Apnea Adult & [facility] Pediatric Office Visit 07/19/2014 [facility] Qutaybeh SDerek 401.9 Hypertension 2:40p Abhilash Romero Unspec 278.00 Obesity Unspec 272.4 Hyperlipidemia Other Unspec 424.0 Mitral Valve Disorder 424.1 Aortic Valve Disorder Office Visit 07/16/2014 Orthopedic Elodia 715.96 Osteoarthrosis 8:30a Services Of JER Otero Unspec Genlzd Or C.M.A. 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 Heart Disease Hospitalists Chronic Unspec 600.00 Hypertrophy Prostate W/O Urinary Obstruction & Other Luts 401.9 Hypertension Unspec V43.65 Knee Replacement By Other Means Office Visit 01/24/2014 [facility] 414.00 Coronary 10:28a Assocpapito NP Atherosclerosis Hospitalists Unspec Type Vessel [place]/Graft 401.9 Hypertension Unspec 272.4 Hyperlipidemia Other Unspec Office Visit 01/23/2014 [facility] 401.9 Hypertension 10:27a Asspapito nielson NP Unspec Hospitalists 414.00 Coronary Atherosclerosis Unspec Type Vessel [place]/Graft 272.4 Hyperlipidemia Other Unspec Office Visit 12/22/2013 [place] Qutaybeh S. 401.1 Hypertension 3:40p Sherita Romero M.D. Benign 424.0 Mitral Valve Disorder 424.1 Aortic Valve Disorder 272.2 Hyperlipidemia Mixed V72.81 Examination Preoperative Cardiovascular Office Visit 12/13/2013 Orthopedic Spencer Dorsey, 715.96 Osteoarthrosis 2:30p Services Of Abhilash Unspec Genlzd Or C.M.A. Localized Lower Leg Office Visit 06/09/2013 [place] Qutaybeh S. 401.1 Hypertension Benign 10:40a Sherita Romero M.D. 424.0 Mitral Valve Disorder 424.1 Aortic Valve Disorder 272.2 Hyperlipidemia Mixed 794.31 Electrocardiogram (ECG) (EKG) Abnormal Office Visit 10/07/2012 [place] Qutaybeh S. 401.1 Hypertension 2:40p Sherita Romero M.D. Benign 424.0 Mitral Valve Disorder 424.1 Aortic Valve Disorder 272.2 Hyperlipidemia Mixed 794.31 Electrocardiogram (ECG) (EKG) Abnormal Office Visit 05/25/2012 [place] Qutaybeh S. 401.1 Hypertension 2:00p Sherita Romero M.D. Benign 424.0 Mitral Valve Disorder 424.1 Aortic Valve Disorder 272.2 Hyperlipidemia Mixed Office Visit 05/17/2012 Neurosurgery Elmer Hernandez 724.02 Spinal Stenosis, 1:00p Services Of Rachelle Singh M.D. Lumbar Region, W/O Neurogenic Claudication Office Visit 03/08/2012 [facility] Iesha S. 401.1 Hypertension 9:40a Bo Romero M.D. 424.0 Mitral Valve Disorder 424.1 Aortic Valve Disorder 272.2 Hyperlipidemia Mixed 794.31 Electrocardiogram (ECG) (EKG) Abnormal V72.81 Examination Preoperative Cardiovascular Office Visit 01/18/2012 Neurosurgery Elmer Hernandez 724.02 Spinal Stenosis, 3:20p Services Of Rachelle Singh M.D. Lumbar Region, W/O Neurogenic Claudication 729.5 Pain In Limb Office Visit 11/17/2011 Neurosurgery Elmer Hernandez 724.02 Spinal Stenosis, 11:20a Services Of Rachelle Singh M.D. Lumbar Region, W/O Neurogenic Claudication 729.5 Pain In Limb Office Visit 10/29/2011 Neurosurgery Corby Vigil 724.02 Spinal Stenosis, 9:45a Services Of Rachelle Mayers M.D. Lumbar Region, W/O Neurogenic Claudication Office Visit 10/23/2011 Neurosurgery Corby Vigil 724.02 Spinal Stenosis, 9:45a Services Of Rachelle Mayers M.D. Lumbar Region, W/O Neurogenic Claudication 729.5 Pain In Limb Office 08/07/2011 [place] Iesha S. 794.31 Electrocardiogram Visit 10:00a Sherita Romero M.D. (ECG) (EKG) Abnormal 401.1 Hypertension Benign 424.0 Mitral Valve Disorder 424.1 Aortic Valve Disorder 272.2 Hyperlipidemia Mixed Office Visit 02/12/2011 Neurosurgery Corby Vigil 724.02 Spinal Stenosis, 9:15a Services Of Rachelle Mayers M.D. 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 Lumbar Region, W/O Neurogenic Claudication Office 12/12/2010 [facility] Qutaybeh S. 794.31 Electrocardiogram Visit 11:00a Heather (ECG) (EKG) Abnormal Harvey.Lei 401.1 Hypertension Benign 424.0 Mitral Valve Disorder 424.1 Aortic Valve Disorder Office Visit 06/26/2010 9:13a [facility] Iesha S. 424.1 Aortic Valve Abhilash Romero Disorder 424.0 Mitral Valve Disorder 401.1 Hypertension Benign 786.50 Pain Chest Unspec 794.31 Electrocardiogram (ECG) (EKG) Abnormal Office Visit 06/25/2010 9:22a Lisa Julian S. 786.50 Pain Chest Abhilash Romero Unspec 794.31 Electrocardiogram (ECG) (EKG) Abnormal 401.1 Hypertension Benign 272.4 Hyperlipidemia Other Unspec Office Visit 05/12/2010 Lisa Martínezybsherin S. 401.1 Hypertension 10:40a Sherita Romero M.D. Benign 424.1 Aortic Valve Disorder 424.0 Mitral Valve Disorder 272.4 Hyperlipidemia Other Unspec Office Visit 07/10/2009 Lisa Qucarly S. 401.1 Hypertension 11:00a Sherita Romero M.D. Benign 424.1 Aortic Valve Disorder 424.0 Mitral Valve Disorder 272.4 Hyperlipidemia Other Unspec Office Visit 12/06/2008 Lisa Julian S. 401.1 Hypertension 9:00a Sherita Romero M.D. Benign 424.1 Aortic Valve Disorder 424.0 Mitral Valve Disorder 272.4 Hyperlipidemia Other Unspec Office Visit 07/10/2008 Lisa Julian S. 272.4 Hyperlipidemia 10:10a Sherita Romero M.D. Other Unspec 424.2 Tricuspid Valve Disorder Spec as Nonrheumatic 401.1 Hypertension Benign 424.1 Aortic Valve Disorder 424.0 Mitral Valve Disorder Office Visit 01/05/2008 Lisa Julian S. V72.81 Examination 10:40a Sherita Romero M.D. Preoperative Cardiovascular 272.4 Hyperlipidemia Other Unspec 424.1 Aortic Valve Disorder 424.2 Tricuspid Valve Disorder Spec as Nonrheumatic 424.0 Mitral Valve Disorder 401.1 Hypertension Benign Office 11/03/2007 Lisa Chang 794.31 Electrocardiogram Visit 10:20a Cardiology Abhilash Romero (ECG) (EKG) Abnormal V72.81 Examination Preoperative Cardiovascular 272.4 Hyperlipidemia Other Unspec 401.0 Hypertension Malignant Plan of Treatment Future Appointment(s):08/31/2018 11:00 am - [facility] ECHO Schedule at [facility] [facility]09/14/2018 9:30 am - Malou Diallo DNP, RN, TRAVEL AGENCY MANAGER-BC at [facility]08/12/2018 - Iesha Romero M.D.I71.9 Aortic aneurysm of unspecified site, without ruptureNew Orders: Echocardiogram, Scheduled: 08/31/18G47.33 Obstructive sleep apnea (adult) ( pediatric)I10 Essential (primary) hypertensionFollow up:10 months ovI34.0 Nonrheumatic mitral (valve) insufficiency
--- OUTSIDE RECORDS SUMMARY | 2018-08-27 10:27 | XMS REPORT | Continuity of Care Document ---
:1940 External Reference #:[id number] Author Name Katherine Starr Care Team Providers Name Role Phone Dedrick Coronado MD Care Team Information Instructor Modeling Unavailable Dedrick Coronado MD Primary Care Physician Unavailable Payers Date Identification Numbers Payment Provider Subscriber Policy Number: [id number] Medicare [place] Chris R Carlos PayID: [id number] [address] [place] [address] Policy Number: [id number] [facility] Plan Chris Oliveranell PayID: [id number] [address] [place] [address] Advance Directives Description No Information Available Problems Date Description Provider Status Onset: 02/11/2018 Acute sinusitis Lauren Harkins NP Active Onset: 04/17/2016 Allergic rhinitis Maciej Martínez MD Active Onset: 04/17/2016 Allergic rhinitis due to pollen Maciej Martínez MD Active Onset: 07/26/2017 Pure hypercholesterolemia Mina Harmon RPA-C Active Onset: 07/26/2017 Essential hypertension Mina Harmon RPA-C Active Family History Date Family Member(s) Observation Comments General No Current Problems Social History Type Date Description Comments Sex Unknown Smoke-Free Home is smoke-free Pets 3 cats Pets 1 dog Tobacco Use Start: Unknown Patient has never smoked Tobacco Use Start: Unknown No Second Hand Smoke Exposure Smoking Status Reviewed: 07/26/17 No Second Hand Smoke Exposure Allergies, Adverse Reactions, Alerts Date Description Reaction Status Severity Comments 04/17/2016 NKDA Active 04/17/2016 Adhesives Active Medications Medication Date Status Form Strength Qnty SIG Indications Ordering Provider Augmentin 02/11/ Active Tablets 500-125mg 20tab take one Lauren 2017 s tablet PABLITO Harkins twice daily Nasonex 04/17/ Active Suspension 50mcg/Act 51gm 2 J30.1 [id number] intranasal Kim Martínez MD puffs every day Astepro 04/17/ Active Solution 0.15% 90ml 2 puffs J30.1 opher 2015 each Kim Martínez MD nostril every day as needed Pataday / Active Solution 0.2% instill 2 Unknown 0000 drops into affected eye(s) once daily as needed Irbesartan / Active Tablets 300mg 1 po qd Unknown 0000 Amlodipine / Active Tablets 5mg 1 by mouth Unknown Besylate 0000 every day Furosemide / Active Tablets 20mg Unknown 0000 Centrum / Active Tablets Adult 50 Unknown Silver Adult 0000 50+ Fish Oil / Active Capsules 500mg Unknown 0000 Vitamin D / Active Tablets 1000Unit 4000 a day Unknown 0000 Aspirin / Active Tablets DR 81mg Unknown 0000 Metamucil / Active Powder 28.3% Unknown 0000 Claritin / Active Tablets 10mg one tablet Unknown 0000 by mouth every morning Metoprolol / Active Tablets ER 100mg take one Unknown Succinate ER 0000 24HR tablet by mouth once daily in the morning Lovastatin / Active Tablets 40mg Unknown 0000 Vitamin C / Active Tablets 500mg 1 by mouth Unknown 0000 every day Triple / Active Capsules Unknown Bradley-3-6-9 0000 Flonase / Hx Suspension 50mcg/Act 2 puffs Unknown Allergy 0000 - each Relief 05/15/ nostril 2017 every day Medications Administered in Office Medication Date Status Form Strength Qnty SIG Indications Ordering Provider Allergy 07/29/ Administered Injection Christopher Injection 2 2018 Kim Martínez MD Or More Allergy 07/15/ Administered Injection Christopher Injection 2 2018 Kim Martínez MD Or More Allergy 07/01/ Administered Injection Christopher Injection 2 2018 Kim Martínez MD Or More Allergy 06/17/ Administered Injection Christopher Injection 2 2019 Kim Martínez MD Or More Allergy 06/03/ Administered Injection Christopher Injection 2 2019 Kim Martínez MD Or More Allergy 05/20/ Administered Injection Christopher Injection 2 2018 Kim Martínez MD Or More Allergy 05/06/ Administered Injection Christopher Injection 2 2017 Kim Martínez MD Or More Allergy 04/22/ Administered Injection Christopher Injection 2 2017 Kim Martínez MD Or More Allergy 04/08/ Administered Injection Christopher Injection 2 2017 Kim Martínez MD Or More Allergy 03/25/ Administered Injection Christopher Injection 2 2018 Kim Martínez MD Or More Allergy 03/11/ Administered Injection Christopher Injection 2 2017 Kim Martínez MD Or More Allergy 02/25/ Administered Injection Christopher Injection 2 2017 Kim Martínez MD Or More Allergy 02/11/ Administered Injection Christopher Injection 2 2017 Kim Martínez MD Or More Allergy 01/28/ Administered Injection Christopher Injection 2 2017 Kim Martínez MD Or More Allergy 01/17/ Administered Injection Christopher Injection 2 2017 Kim Martínez MD Or More Allergy 12/31/ Administered Injection Christopher Injection 2 2017 Kim Martínez MD Or More Allergy 12/17/ Administered Injection Christopher Injection 2 2017 Kim Martínez MD Or More Allergy 12/03/ Administered Injection Christopher Injection 2 2017 Kim Martínez MD Or More Allergy 11/19/ Administered Injection Christopher Injection 2 2017 Kim Martínez MD Or More Allergy 11/05/ Administered Injection Christopher Injection 2 2017 Kim Martínez MD Or More Allergy 10/25/ Administered Injection Christopher Injection 2 2017 Kim Martínez MD Or More Allergy 10/08/ Administered Injection Christopher Injection 2 2017 Kim Martínez MD Or More Allergy 09/24/ Administered Injection Christopher Injection 2 2017 Kim Martínez MD Or More Allergy 05// Administered Injection Christopher Injection 2 2017 Kim Martínez MD Or More Allergy 08/27/ Administered Injection Christopher Injection 2 2017 Kim Martínez MD Or More Allergy 04// Administered Injection Christopher Injection 2 2017 Kim Martínez MD Or More Allergy 07/30/ Administered Injection Christopher Injection 2 2017 Kim Martínez MD Or More Allergy 07/16/ Administered Injection Christopher Injection 2 2017 Kim Martínez MD Or More Allergy 07/02/ Administered Injection Christopher Injection 2 2017 Kim Martínez MD Or More Allergy 06/18/ Administered Injection Christopher Injection 2 2017 Kim Martínez MD Or More Allergy 06/04/ Administered Injection Christopher Injection 2 2017 Kim Martínez MD Or More Allergy 05/21/ Administered Injection Christopher Injection 2 2017 Kim Martínez MD Or More Allergy 04/30/ Administered Injection Christopher Injection 2 2016 Kim Martínez MD Or More Allergy 04/16/ Administered Injection Christopher Injection 2 2016 Kim Martínez MD Or More Allergy 04/05/ Administered Injection Christopher Injection 2 2016 Kim Martínez MD Or More Allergy 03/19/ Administered Injection Christopher Injection 2 2016 Kim Martínez MD Or More Allergy 03/05/ Administered Injection Christopher Injection 2 2016 Kim Martínez MD Or More Allergy 02/19/ Administered Injection Christopher Injection 2 2016 Kim Martínez MD Or More Allergy 02/05/ Administered Injection Christopher Injection 2 2016 Kim Martínez MD Or More Allergy 01/22/ Administered Injection Christopher Injection 2 2016 Kim Martínez MD Or More Allergy 01/08/ Administered Injection Christopher Injection 2 2016 Kim Martínez MD Or More Allergy 12/25/ Administered Injection Christopher Injection 2 2016 Kim Martínez MD Or More Allergy 12/11/ Administered Injection Christopher Injection 2 2016 Kim Martínez MD Or More Allergy 11/27/ Administered Injection Christopher Injection 2 2016 Kim Martínez MD Or More Allergy 11/20/ Administered Injection Christopher Injection 2 2016 Kim Martínez MD Or More Allergy 11/13/ Administered Injection Christopher Injection 2 2016 Kim Martínez MD Or More Allergy 11/06/ Administered Injection Christopher Injection 2 2016 Kim Martínez MD Or More Allergy 10/30/ Administered Injection Christopher Injection 2 2016 Kim Martínez MD Or More Allergy 10/23/ Administered Injection Christopher Injection 2 2016 Kim Martínez MD Or More Allergy 10/16/ Administered Injection Christopher Injection 2 2016 Kim Martínez MD Or More Allergy // Administered Injection Christopher Injection 2 2016 Kim Martínez MD Or More Allergy 10/02/ Administered Injection Christopher Injection 2 2016 Kim Martínez MD Or More Allergy 09/25/ Administered Injection Christopher Injection 2 2016 Kim Martínez MD Or More Allergy 09/18/ Administered Injection Christopher Injection 2 2016 Kim Martínez MD Or More Allergy 05// Administered Injection Christopher Injection 2 2016 Kim Martínez MD Or More Allergy 09/04/ Administered Injection Christopher Injection 2 2016 Kim Martínez MD Or More Allergy 08/28/ Administered Injection Christopher Injection 2 2016 Kim Martínez MD Or More Allergy 08/19/ Administered Injection Christopher Injection 2 2016 Kim Martínez MD Or More Allergy 08/14/ Administered Injection Christopher Injection 2 2016 Kim Martínez MD Or More Allergy 08/07/ Administered Injection Christopher Injection 2 2016 Kim Martínez MD Or More Allergy 07/31/ Administered Injection Christopher Injection 2 2016 Kim Martínez MD Or More Allergy 07/24/ Administered Injection Christopher Injection 2 2016 Kim Martínez MD Or More Allergy 07/17/ Administered Injection Christopher Injection 2 2016 Kim Martínez MD Or More Allergy // Administered Injection Christopher Injection 2 2016 Kim Martínez MD Or More Allergy 07/03/ Administered Injection Christopher Injection 2 2016 Kim Martínez MD Or More Allergy 06/26/ Administered Injection Christopher Injection 2 2016 Kim Martínez MD Or More Allergy 06/19/ Administered Injection Christopher Injection 2 2016 Kim Martínez MD Or More Allergy 06/12/ Administered Injection Christopher Injection 2 2016 Kim Martínez MD Or More Allergy 06/08/ Administered Injection Christopher Injection 2 2016 Kim Martínez MD Or More Allergy 05/29/ Administered Injection Christopher Injection 2 2016 Kim Martínez MD Or More Allergy 05/22/ Administered Injection Christopher Injection 2 2016 Kim Martínez MD Or More Immunizations Description No Information Available Vital Signs Date Vital Result Comment 08/12/2018 10:55am BP Systolic 124 mmHg BP Diastolic 66 mmHg Height 70 inches 5'10" Weight 243.00 lb BMI (Body Mass Index) 34.9 kg/m2 Heart Rate 62 /min Respiratory Rate 18 /min Body Temperature 96.7 F O2 % BldC Oximetry 96 % 02/11/2018 11:36am BP Systolic 140 mmHg BP Diastolic 62 mmHg Height 70 inches 5'10" Weight 246.50 lb BMI (Body Mass Index) 35.4 kg/m2 Heart Rate 62 /min Body Temperature 96.6 F O2 % BldC Oximetry 97 % 07/26/2017 11:01am BP Systolic 128 mmHg BP Diastolic 70 mmHg Height 70 inches 5'10" Weight 246.00 lb BMI (Body Mass Index) 35.3 kg/m2 Heart Rate 62 /min Respiratory Rate 16 /min Body Temperature 96.6 F O2 % BldC Oximetry 98 % 05/15/2016 1:55pm BP Systolic 140 mmHg BP Diastolic 78 mmHg Height 70 inches 5'10" Weight 246.00 lb BMI (Body Mass Index) 35.3 kg/m2 Heart Rate 64 /min Respiratory Rate 15 /min Body Temperature 96.9 F O2 % BldC Oximetry 99 % 04/17/2016 2:49pm BP Systolic 100 mmHg BP Diastolic 60 mmHg Height 70 inches 5'10" Weight 245.00 lb BMI (Body Mass Index) 35.1 kg/m2 Heart Rate 70 /min Respiratory Rate 12 /min Body Temperature 96.1 F O2 % BldC Oximetry 98 % Results Description No Information Available Procedures Date Code Description Status 07/29/2018 47918 Allergy Injection 2 Or More Completed 07/15/2018 28213 Allergy Injection 2 Or More Completed 07/01/2018 78381 Allergy Injection 2 Or More Completed 06/17/2018 76861 Allergy Injection 2 Or More Completed 06/03/2018 53904 Allergy Injection 2 Or More Completed 05/20/2018 76547 Allergy Injection 2 Or More Completed 05/06/2018 70461 Allergy Injection 2 Or More Completed 04/22/2018 10875 Allergy Injection 2 Or More Completed 04/08/2018 41166 Allergy Injection 2 Or More Completed 2018 83759 Allergy Antigens Single Or Multiple Completed 03/25/2018 98699 Allergy Injection 2 Or More Completed 03/11/2018 34589 Allergy Injection 2 Or More Completed 02/25/2018 97426 Allergy Injection 2 Or More Completed 02/11/2018 76811 Allergy Injection 2 Or More Completed 01/28/2018 10620 Allergy Injection 2 Or More Completed 01/17/2018 61929 Allergy Injection 2 Or More Completed 12/31/2017 19603 Allergy Injection 2 Or More Completed 12/17/2017 62193 Allergy Injection 2 Or More Completed 12/03/2017 63231 Allergy Injection 2 Or More Completed 11/19/2017 95991 Allergy Injection 2 Or More Completed 11/05/2017 13018 Allergy Injection 2 Or More Completed 10/28/2017 67204 Allergy Antigens Single Or Multiple Completed 10/25/2017 69834 Allergy Injection 2 Or More Completed 10/08/2017 12533 Allergy Injection 2 Or More Completed 09/24/2017 98192 Allergy Injection 2 Or More Completed 09/10/2017 21504 Allergy Injection 2 Or More Completed 08/27/2017 65553 Allergy Injection 2 Or More Completed 08/13/2017 05399 Allergy Injection 2 Or More Completed 07/30/2017 94762 Allergy Injection 2 Or More Completed 07/16/2017 43242 Allergy Injection 2 Or More Completed 07/02/2017 21765 Allergy Injection 2 Or More Completed 06/18/2017 36702 Allergy Injection 2 Or More Completed 06/04/2017 64321 Allergy Injection 2 Or More Completed 06/01/2017 50185 Allergy Antigens Single Or Multiple Completed 05/21/2017 67303 Allergy Injection 2 Or More Completed 04/30/2017 39507 Allergy Injection 2 Or More Completed 04/16/2017 74321 Allergy Injection 2 Or More Completed 04/05/2017 27559 Allergy Injection 2 Or More Completed 03/19/2017 74009 Allergy Injection 2 Or More Completed 03/05/2017 51767 Allergy Injection 2 Or More Completed 02/19/2017 04749 Allergy Injection 2 Or More Completed 02/05/2017 20509 Allergy Injection 2 Or More Completed 01/22/2017 89899 Allergy Injection 2 Or More Completed 01/08/2017 68764 Allergy Injection 2 Or More Completed 12/25/2016 63273 Allergy Injection 2 Or More Completed 12/11/2016 28825 Allergy Injection 2 Or More Completed 11/27/2016 30357 Allergy Injection 2 Or More Completed 11/20/2016 66128 Allergy Injection 2 Or More Completed 11/13/2016 08324 Allergy Injection 2 Or More Completed 11/06/2016 96407 Allergy Injection 2 Or More Completed 10/30/2016 72278 Allergy Injection 2 Or More Completed 10/23/2016 07025 Allergy Injection 2 Or More Completed 10/16/2016 17273 Allergy Injection 2 Or More Completed 10/09/2016 15417 Allergy Injection 2 Or More Completed 10/02/2016 92953 Allergy Injection 2 Or More Completed 09/25/2016 02745 Allergy Injection 2 Or More Completed 09/18/2016 72467 Allergy Injection 2 Or More Completed 09/11/2016 37018 Allergy Injection 2 Or More Completed 09/04/2016 49139 Allergy Injection 2 Or More Completed 08/28/2016 42269 Allergy Injection 2 Or More Completed 08/19/2016 07990 Allergy Injection 2 Or More Completed 08/14/2016 03315 Allergy Injection 2 Or More Completed 08/07/2016 84064 Allergy Injection 2 Or More Completed 07/31/2016 07335 Allergy Injection 2 Or More Completed 07/24/2016 27012 Allergy Injection 2 Or More Completed 07/17/2016 29401 Allergy Injection 2 Or More Completed 07/10/2016 52988 Allergy Injection 2 Or More Completed 07/03/2016 01292 Allergy Injection 2 Or More Completed 06/26/2016 26698 Allergy Injection 2 Or More Completed 06/19/2016 30337 Allergy Injection 2 Or More Completed 06/12/2016 06900 Allergy Injection 2 Or More Completed 06/08/2016 31980 Allergy Injection 2 Or More Completed 05/29/2016 80702 Allergy Injection 2 Or More Completed 05/22/2016 10673 Allergy Antigens Single Or Multiple Completed 05/22/2016 35422 Allergy Injection 2 Or More Completed 04/17/2016 01381 Allergy Tests Percutaneous W/ Allergenic Extracts Completed Encounters Type Date Location Provider Dx Diagnosis Office Visit 02/11/2018 Shannan Harkins NP J01.90 Acute sinusitis, 11:30a unspecified Office Visit 07/26/2017 Mina Fountain J30.1 Allergic rhinitis due 11:00a RPA-C to pollen J30.89 Other allergic rhinitis Office Visit 05/15/2016 2:00p Patrick Rodriguez30.1 Allergic rhinitis due to pollen J30.89 Other allergic rhinitis Office Visit 04/17/2016 2:30p Patrick Rodriguez30.1 Allergic rhinitis due to pollen J30.89 Other allergic rhinitis Plan of Treatment Future Appointment(s):08/29/2018 10:10 am - Injection 1 at [facility]
[2018-08-27 10:28] VITALS: BP 156/59
[2018-08-27] MEDS ORDERED: Aspirin 81 mg CHEW TAB* 81 MG TAB.CHEW PO ONE ×2 (10:37→10:43)
--- NOTE | 2018-08-27 10:41 | UC ---
Cardiac HPI - HPI Summary HPI Summary: Chest pain started last night and resolved. Woke up this AM w/ chest pain that returned and it felt heavy. He also reports not feeling right overall. denies dizziness, sob, n/v. took ASA this AM. - History of Current Complaint Chief Complaint: UCChestPain Stated Complaint: CHEST PAIN Time Seen by Provider: 08/27/18 10:33 Hx Obtained From: Patient Onset/Duration: Sudden Onset Pain Intensity: 1 Chest Pain Location: Upper Sternal Character: Heaviness Aggravating Factor(s): Nothing Alleviating Factor(s): Nothing - Allergy/Home Medications Allergies/Adverse Reactions: Allergies Allergy/AdvReac Type Severity Reaction Status Date / Time Adhesive Tape Allergy Rash And Verified 08/27/18 10:28 Itching lisinopril Allergy Coughing Verified 08/27/18 10:28 paper tape Allergy Itching Uncoded 08/27/18 10:28 PMH/Surg Hx/FS Hx/Imm Hx Previously Healthy: Yes Cardiovascular History: Cardiac Disease - Surgical History Surgical History: Yes Surgery Procedure, Year, and Place: [facility]- 2011,knee right, CATARACTS,turp- 2011. LUMBAR- LAMINECTOMY L3-4 [facility]- 2012, left knee - Social History Alcohol Use: None Substance Use Type: None Smoking Status (MU): Never Smoked Tobacco - Immunization History Most Recent Influenza Vaccination: 2012 Most Recent Tetanus Shot: UP TO DATE PER DR CORONADO Most Recent Pneumonia Vaccination: UP TO DATE PER DR CORONADO Review of Systems All Other Systems Reviewed And Are Negative: Yes Constitutional: Positive: Negative Skin: Negative: Rash Respiratory: Negative: Shortness Of Breath Cardiovascular: Positive: Chest Pain. Negative: Palpitations Gastrointestinal: Negative: Nausea Neurological: Negative: Headache, Weakness Physical Exam Triage Information Reviewed: Yes Appearance: Well-Appearing Vital Signs: Initial Vital Signs Temp 98.0 F 08/27/18 10:23 Pulse 68 08/27/18 10:23 Resp 18 08/27/18 10:23 BP 156/59 08/27/18 10:23 Pulse Ox 97 08/27/18 10:23 Vital Signs Reviewed: Yes Respiratory Exam: Normal Cardiovascular Exam: Normal Cardiovascular: Negative: Other: - no reproducible chest tenderness Neurological: Positive: Alert, Other: - CN II-XII GROSSLY INTACT - Assessment/Plan Course Of Treatment: Chest pain in a cardiac pt that returned from last night. EKG reviewed w/ Dr. Lozano and it did not show any T wave inversions or changes. BP elevated and on exam he is speaking clearly normally w/ no distress. ALS ambulance called to have him sent to ED for eval. ASa , O2 started. - Differential Diagnoses - Chest Pain Differential Diagnosis/HQI/PQRI: Acute KS, Chest Wall - Clinical Impression Provider Diagnosis: Chest pain Discharge - Sign-Out/Discharge Documenting (check all that apply): Patient Departure All imaging exams completed and their final reports reviewed: No Studies - Discharge Plan Condition: Guarded Disposition: TRANS HIGHER LVL OF CARE FAC Referrals: Dedrick Coronado MD [Primary Care Provider] - - Billing Disposition and Condition Condition: GUARDED Disposition: Trans Higher Lvl of Care Fac
== END 2018-08-27 11:00 | disposition short-term general hospital (02) ==
LOC: UCEAST 10:21
DX: R07.89 Other chest pain (principal); R03.0 Elevated blood-pressure reading, without diagnosis of hypertension; I51.9 Heart disease, unspecified; Z88.8 Allergy status to other drugs, medicaments and biological substances; Z91.048 Other nonmedicinal substance allergy status
CPT/HCPCS: 99213; A9270-GY; G0463

== ENCOUNTER 2018-08-27 11:22 | Observation (INO) | payer MEDICARE, BC ==
--- NOTE | 2018-08-27 11:37 | ED ---
HPI Chest Pain - HPI Summary HPI Summary: This patient is a 78 year old M brought in by ambulance to [facility] from [facility] accompanied by his with a chief complaint of chest discomfort since yesterday around 20:00 that spontaneously resolved after 5 minutes. Today the chest discomfort returned to a similar severity to last night while eating breakfast that is still present, rated at 1/10 currently. reported he appeared flushed prior to leaving the house this morning. Patient reports lower extremity swelling that is unchanged from baseline. Denies SOB, fever, abdominal pain, urinary symptoms, and lower extremity pain. Patient denies previous HI. PMHx includes HTN, leaky valves, enlarged prostate, thoracic abdomen aneurysm, and thyroid nodules. He reports thoracic aneurysm is unchanged with last ultrasound a couple months ago and the next scheduled for . Vital signs while in room: HR 62 bpm, BP 160/79, O2 sat 96 % Regular medications include Furosemide 20mg, Metoprolol 100mg, Lovastatin 40mg, ASA 81 mg; morning medications taken today. Patient received 3x81mg ASA at [facility]. - History of Current Complaint Chief Complaint: EDChestPainROMI Time Seen by Provider: 08/27/18 11:35 Hx Obtained From: Patient Onset/Duration: Started Days Ago Time of Onset: 20:00 Timing: Intermittent Initial Severity: Mild Current Severity: Mild Pain Intensity: 1 Pain Scale Used: 0-10 Numeric Chest Pain Radiates: No Character: Other: - discomfort Aggravating Factor(s): Nothing Alleviating Factor(s): Medication, Spontaneous Resolution Associated Signs and Symptoms: Positive: Chest Pain. Negative: Shortness of Breath - Allergy/Home Medications Allergies/Adverse Reactions: Allergies Allergy/AdvReac Type Severity Reaction Status Date / Time Adhesive Tape Allergy Rash And Verified 08/27/18 10:28 Itching lisinopril Allergy Coughing Verified 08/27/18 10:28 paper tape Allergy Itching Uncoded 08/27/18 10:28 Home Medications: Home Medications Acetaminophen/Diphenhydramine [Acetaminophen Pm Caplet] 2 each PO BEDTIME [History Confirmed 08/27/18] Aspirin 81 mg CHEW TAB* [Aspirin Low Dose TAB*] 81 mg PO BID 08/27/18 [History Confirmed 08/27/18] Azelastine HCl 137 mcg BOTH NARES DAILY PRN 08/27/18 [History Confirmed 08/27/18 ] Fish Oil/Borage/Flax/Om3,6,9 1 [Triple Pillow Complex 3-6-9] 400 mg PO BEDTIME [History Confirmed 08/27/18] Furosemide 20 mg PO TID 08/27/18 [History Confirmed 08/27/18] Irbesartan 300 mg PO DAILY 08/27/18 [History Confirmed 08/27/18] Lovastatin (NF) [Mevacor (NF)] 40 mg PO BEDTIME 08/27/18 [History Confirmed ] Mometasone Furoate 2 spray BOTH NARES DAILY 08/27/18 [History Confirmed 08/27/18 ] Pillow-3 Fatty Acids/Fish Oil [Fish Oil 1,000 mg Softgel] 1 each PO DAILY [History Confirmed 08/27/18] Propylene Glycol/Peg 400/Pf [Systane Ultra 0.4-0.3% Eye Drp] 1 each OPHTHALMIC DAILY PRN 08/27/18 [History Confirmed 08/27/18] PMH/Surg Hx/FS Hx/Imm Hx Endocrine/Hematology History: Denies: Hx Diabetes, Hx Anemia, Hx Unexplained Bleeding Cardiovascular History: Reports: Hx Hypercholesterolemia, Hx Hypertension, Hx Valvular Heart Disease - AORTIC, MITRAL VALVE DISORDERS Denies: Hx Aneurysm, Hx Angina, Hx Angioplasty, Hx Auto Implanted Cardiovert Defib, Hx Cardiac Arrest, Hx Cardiomegaly, Hx Congenital Heart Disease, Hx Congestive Heart Failure, Hx Coronary Artery Disease, Hx Deep Vein Thrombosis, Hx Embolism, Hx Hypotension, Hx Pacemaker/ICD, Hx Peripheral Vascular Disease, Hx Rheumatic Fever, Hx Syncope, Other Cardiovascular Problems/Disorders Respiratory History: Reports: Hx Sleep Apnea Denies: Hx Asthma, Hx Chronic Bronchitis, Hx Chronic Obstructive Pulmonary Disease (COPD), Hx Cystic Fibrosis, Hx Lung Cancer, Hx Pleural Effusion, Hx Pneumonia, Hx Pulmonary Edema, Hx Pulmonary Embolism, Hx Seasonal Allergies, Other Respiratory Problems/Disorders GI History: Reports: Other GI Disorders - ruq pain when lying down Denies: Hx Jaundice History: Reports: Hx Kidney Stones - ONE KNOWN, Hx Renal Disease - KIDNEY STONES, BPH Denies: Hx Acute Renal Failure, Hx Benign Prostatic Hyperplasia, Hx Chronic Renal Failure, Hx Dialysis, Hx Kidney Infection, Other Problems/Disorders Musculoskeletal History: Reports: Hx Arthritis - BACK AND HIPS RT TOTAL KNEE, Hx Back Problems Denies: Hx Bursitis, Hx Congenital Bone Abnormalities, Hx Fibromyalgia, Hx Gout, Hx Orthopedic Injury, Hx Osteoporosis, Hx Scoliosis, Hx Tendonitis, Other Musculoskeletal History Sensory History: Reports: Hx Contacts or Glasses Denies: Hx Cataracts, Hx Eye Injury, Hx Eye Prosthesis, Hx Glaucoma, Hx Legally Blind, Hx Macular Degeneration, Hx Vision Problem, Hx Deafness, Hx Hearing Aid, Hx Hearing Problem, Other Sensory Impairments Opthamlomology History: Reports: Hx Contacts or Glasses Denies: Hx Cataracts, Hx Eye Injury, Hx Eye Prosthesis, Hx Glaucoma, Hx Legally Blind, Hx Macular Degeneration, Hx Vision Problem, Other Sensory Impairments Neurological History: Denies: Hx Headaches Psychiatric History: Denies: Hx Anxiety, Hx Depression, Hx Panic Disorder - Surgical History Surgery Procedure, Year, and Place: cher- 2011,knee right, CATARACTS,turp- 2011. LUMBAR- LAMINECTOMY L3-4 [facility]- 2012, left knee Hx Anesthesia Reactions: No Infectious Disease History: No Infectious Disease History: Denies: Hx Tuberculosis, Traveled Outside the [place] in Last 30 Days - Family History Known Family History: Positive: Cardiac Disease - mother, Hypertension - mother - Social History Lives: With Family Alcohol Use: None Substance Use Type: Reports: None Hx Tobacco Use: No Smoking Status (MU): Never Smoked Tobacco Review of Systems Negative: Fever Positive: Chest Pain Negative: Shortness Of Breath Negative: Abdominal Pain Positive: no symptoms reported Negative: Myalgia, Edema All Other Systems Reviewed And Are Negative: Yes Physical Exam Vital Signs On Initial Exam: Initial Vitals Temp Pulse Resp BP Pulse Ox 98.7 F 60 20 169/83 96 08/27/18 11:26 08/27/18 11:26 08/27/18 11:26 08/27/18 11:26 08/27/18 11:26 Diagnostics - Vital Signs Vital Signs Temp Pulse Resp BP Pulse Ox 08/27/18 11:26 98.7 F 60 20 169/83 96 - Laboratory Result Diagrams: 08/27/18 12:43 08/27/18 12:42 Lab Statement: Any lab studies that have been ordered have been reviewed, and results considered in the medical decision making process. - Radiology CXR Radiology Interpretation Completed By: Radiologist Summary of Radiographic Findings: NO ACTIVE CARDIOPULMONARY DISEASE IS NOTED. ED Physician has reviewed this report. - CT Chest CTA CT Interpretation Completed By: Radiologist Summary of CT Findings: No evidence of thoracic aortic dissection. No evidence of pulmonary embolus is. noted. ED Physician has reviewed this report. - EKG 1132 Cardiac Rate: NL - 68 BPM EKG Rhythm: Sinus Rhythm EKG Comparison: Other - 01/24/14, non-specific changes [id number] Summary of EKG Findings: nml AV/IV CT, nml QTc. No acute changes. left axis deviation (-25). Not a STEMI. Re-Evaluation - Re-Evaluation 1 Re-Evaluation Time: 12:42 Change: Improved Comment: HR 69 BPM, Spo2 96%, BP 147/86. Chest pain remains 0-1. Agrees to CTA. Chest Pain Course/Dx - Course Course Of Treatment: 78 year old M c/o chest discomfort since yesterday around 20:00 that spontaneously resolved after 5 minutes. Today the chest discomfort returned to a similar severity to last night while eating breakfast that is still present, rated at 1/10 currently. History of thoracic abdomen aneurysm. He reports thoracic aneurysm is unchanged with last ultrasound a couple months ago and the next scheduled for 08/31/18. Regular medications include Furosemide 20mg, Metoprolol 100mg, Lovastatin 40mg, ASA 81 mg; morning medications taken today. Patient received 3x81mg ASA at [facility]. Bloodwork reveals absolute monos 0.9, BUN creatinine ratio 22.0, thyroxine 14.76. UA is only signifcant for specific gravity of 1.003, but is otherwise negative. CXR reveals no active cardiopulmonary disease. Chest CTA, as per radiologist, "No evidence of thoracic aortic dissection. No evidence of pulmonary embolus is noted." At 1500, Case discussed with Dr. Russell, hospitalist; called back at 1520 and agrees to admission. Plan discussed with patient and patient agrees. - Critical Care Time Critical Care Time: 30-74 min Discharge - Sign-Out/Discharge Documenting (check all that apply): Patient Departure - admit - Discharge Plan Condition: Stable Disposition: ADMITTED TO [facility] - Attestation Statements Document Initiated by Scribe: Yes Documenting Scribe: Tram Durant Provider For Whom Scribe is Documenting (Include Credential): Melissa Interiano MD Scribe Attestation: Tram España, scribed for Melissa Interiano MD on 08/27/18 at 2212. Status of Scribe Document: Ready
[2018-08-27 12:46] LABS: Urine Appearance Clear; Urine Bilirubin Negative (Negative); Urine Blood Negative (Negative); Urine Color Straw; Urine Glucose Negative (Negative); Urine Ketones Negative (Negative); Urine Nitrite Negative (Negative); Urine Protein Negative (Negative); Urine Specific Gravity 1.003 (1.010-1.030); Urine Urobilinogen Negative (Negative)
[2018-08-27 12:55] LABS: ABS Basophils 0.1 10^3/ul (0-0.2); ABS Eosinophils 0.3 10^3/ul (0-0.6); ABS Lymphocytes 1.9 10^3/ul (1.0-4.8); ABS Monocytes 0.9 10^3/ul (0-0.8); ABS Neutrophils 5.2 10^3/ul (1.5-7.7); ABS Nucleated RBC 0 10^3/ul; Eosinophil % 3.4 %; Hematocrit 45 % (36-46); Hemoglobin 15.1 g/dL (14.0-18.0); Lymphocyte % 22.7 %; Mean Corpuscular HGB Conc 34 g/dL (31-36); Mean Corpuscular Hemoglobin 30 pg (27-31); Mean Corpuscular Volume 89 fL (80-94); Mean Platelet Volume 8.4 fL (7.4-10.4); Nucleated Red Blood Cells % 0; Platelet Count 196 10^3/uL (150-450); Red Blood Count 4.98 10^6 /uL (4.18-5.48); Red Cell Distribution Width 13 % (10.5-15); White Blood Count 8.4 10^3/uL (3.5-10.8)
[2018-08-27 13:04] LABS: Activated Partial Thrombo Time 31.3 seconds (26.0-36.3); INR 0.89 (0.77-1.02)
[2018-08-27 13:12] LABS: Albumin/Globulin Ratio 1.3 (1-3); Calcium 8.7 mg/dL (8.6-10.3); EGFR African American 110.5 (>60); EGFR Non-African American 91.3 (>60); Magnesium 2.5 mg/dL (1.9-2.7); Total Bilirubin 0.4 mg/dL (0.2-1.0)
[2018-08-27 13:15] LABS: Troponin I 0.01 ng/mL (<0.04)
[2018-08-27] MEDS ORDERED: Iohexol 350* (CONTRAST) 500 ML MDV IV ONE (13:33)
[2018-08-27 13:50] LABS: T4, Total 14.76 mcg/dL (6.09-12.23)
[2018-08-27 13:54] LABS: TSH (Thyroid Stimulating Horm) 0.92 mcIU/mL (0.34-5.60)
[2018-08-27] MEDS ORDERED: Acetaminophen TAB* 325 MG PO PRN (16:08)
[2018-08-27] MEDS ORDERED: Metoprolol Succinate XL TAB* 100 MG PO SCH (17:00)
[2018-08-27] MEDS: Aspirin 81 mg CHEW TAB* 81 MG TAB.CHEW PO SCH (20:03)
[2018-08-27] MEDS: Furosemide TAB* 20 MG PO SCH (20:03)
[2018-08-27] MEDS: Atorvastatin* 10 MG TAB PO SCH (20:03)
[2018-08-27] MEDS: Cholecalciferol TAB* 400 UNIT PO SCH (20:03)
[2018-08-27] MEDS: Heparin VIAL(*) 5000 UNITS/ML VIAL (FIVE THOUSAND) SUBCUT SCH (22:00)
--- NOTE | 2018-08-28 00:14 | HP ---
CC: Dr. Coronado; Dr. Romero HISTORY AND PHYSICAL: DATE OF ADMISSION: 08/27/18 TIME OF EVALUATION: 3:30 p.m. PRIMARY CARE PROVIDER: Dr. Coronado. CENTRAL SUPPLY WORKER: Dr. Romero. CHIEF COMPLAINT: Chest discomfort. HISTORY OF PRESENT ILLNESS: Mr. Gonzalez is a 78-year-old male with a past medical history of obstruc tive sleep apnea, on CPAP, obesity, with a BMI of 36, chronic sinusitis, hyperlipidemia, hypertension , mild aortic and mitral insufficiency, mildly dilated ascending aorta, who presented to the emergenc y room with complaint of chest discomfort. The patient states he was in his usual state of health until yesterday. He actually saw Dr. Juana tatum on 08/12/18 for his annual visit, had no complaints or cardiac symptoms, and the plan at that time was for him to have an echocardiogram for followup of his dilated ascending aorta and to return for a [facility] visit in 10 months. The patient states that on 08/24/18, he worked on his yard, removing a tr ee. He describes 20 to 30 minutes of exertion using a chain saw and then removing the wood. He stat es that he felt well while he was exercising, with no complaint. He did have some shortness of breat h, but he felt this was not unreasonable for the amount of exertion that he was performing. He states that last night around 8 p.m. he sat down to watch a TV show and he had an episode of retro sternal chest discomfort that he grades 2/10. The whole episode lasted 5 minutes and resolved by its elf. He states that he slept well, woke up around 8, went downstairs, prepared breakfast, and the sy mptoms returned and the pressure at this time was more pronounced and did not alleviate. So, he came to the emergency room for further evaluation. He states that by the time he arrived to the emergenc y room, his discomfort was down to 1/10. As per ED note, the patient's reported that he appeare d flushed prior to leaving the house. He denies shortness of breath, fever, cough, nausea, vomiting, diarrhea, abdominal pain or any other symptoms associated. He denies eating greasy food or any diff erent dish than usual and the pain does not feel like indigestion. PAST MEDICAL HISTORY: 1. Obstructive sleep apnea, on CPAP. 2. Hypertension. 3. Hyperlipidemia. 4. Obesity, with a BMI of 36. 5. Mild aortic and mitral insufficiency. 6. Mildly dilated ascending aorta. 7. Carotid stenosis with 50% to 69% stenosis on the right and 50% on the left. 8. BPH. 9. Spinal stenosis. 10. Left knee avascular necrosis, status post left total knee replacement in 2013. 11. Status post L3 to L5 laminectomy. 12. Status post TURP. 13. Status post cholecystectomy. 14. Status post right total knee replacement in 2007. 15. Status post bilateral cataract removal. 16. Hyperplastic polyp and a colonoscopy in 2005. MEDICATION LIST: 1. Acetaminophen PM 2 tablets p.o. at bedtime. 2. Amlodipine 5 mg p.o. daily. 3. Aspirin 81 mg p.o. b.i.d. 4. Azelastine 137 mcg one spray to both nares daily as needed for allergy symptoms. 5. Vitamin D 400 units p.o. at bedtime. 6. Triple [place] Complex 400 mg p.o. at bedtime. 7. Furosemide 20 mg p.o. t.i.d. 8. Irbesartan 300 mg p.o. daily. 9. Loratadine 10 mg p.o. q.a.m. 10. Lovastatin 40 mg p.o. at bedtime. 11. Metoprolol succinate 100 mg p.o. at 5 p.m. 12. Mometasone furoate 2 sprays to both nares daily. 13. Multivitamin 1 tablet p.o. q.a.m. 14. Fish oil 1000 mg p.o. daily. 15. Artificial tears 1 drop to each eye daily as needed for dry eye. 16. Metamucil 6 capsules p.o. daily as needed for constipation. ALLERGIES: The patient had cough with JN INHIBITORS and he is also sensitive to ADHESIVE and PAPER TAPE. FAMILY HISTORY: There is a family history of heart disease, cancer, diabetes. His father passed of colon cancer at age 76 and mom passed at age 86 of a stroke, had a history of hypertension. SOCIAL HISTORY: There is no history of tobacco, alcohol or drug use. Surrogate decision maker is archana s , Lilli Gonzalez, phone number is [phone]. REVIEW OF SYSTEMS: A 14-point review of systems was performed, and all the pertinent negative and po sitive findings are in the HPI. PHYSICAL EXAMINATION GENERAL: The patient is a pleasant, obese, elderly gentleman, lying on the ED stretcher, in no acute distress. VITAL SIGNS: Temperature 98.7, heart rate is 73, respiratory rate is 20, oxygen saturation 95% on ro om air, blood pressure is 155/74. HEENT: Pupils are equal. Moist mucous membranes. CHEST: Breath sounds present bilaterally, with no added sounds. There is no pain on anterior chest wall palpation. CVS: Normal S1 and S2. Regular rate and rhythm. ABDOMEN: Soft. Bowel sounds present. EXTREMITIES: There is trace bilateral lower extremity edema. NEURO: He is alert and oriented x3, able to move all 4 extremities. LABORATORY AND IMAGING DATA: The patient had a CBC that showed a WBC of 8.4, hemoglobin of 15.1, he matocrit 45, platelet of 196, with 62% neutrophils. INR is 0.89. Chemistry showed a sodium 140, pot assium of 4, chloride 105, bicarb of 29, BUN of 18, creatinine of 0.8, glucose of 100, lactic acid is 1, calcium is 8.7, magnesium is 2.5. LFTs are normal. First troponin is 0.01. BNP is 67. TSH is 0.92. Urinalysis is negative. EKG done on 08/27/18 at 11:32 a.m. showed sinus rhythm at 68 beats per minute, with no acute ischemic changes, borderline left axis deviation. There are flat T waves in III and aVF and those are unchan ged from his prior his prior EKG from January 2014. Chest x-ray was read as no active cardiopulmonary disease and I agree with this reading. CT of the chest was also reviewed and it was read as no evidence of thoracic aortic dissection nor pu lmonary embolus. ASSESSMENT AND PLAN: Mr. Gonzalez is a 78-year-old male with a past medical history of hypertension, hyperlipidemia, obesity, with a BMI of 36, mildly dilated ascending aorta, carotid stenosis, benign p rostatic hypertrophy, who presents to the emergency room with complaints of chest discomfort. 1. Chest discomfort, rule out acute coronary syndrome: The patient's symptoms happened at rest, but he did have some heavy exertion earlier in the week. Musculoskeletal pain is on the differential, bu t he has no pain on palpation of the chest wall at this time. His HEART pathway for early discharge and acute chest pain score was 6 (moderately suspicious history, nonspecific repolarization disturban ce on EKG, age equal or greater than 65, three or more risk factors or history of atherosclerotic dis ease, and initial troponin within normal limits) conferring high risk with 12% to 65% thirty-day angela or acute coronary event. The case was discussed with the emergency room provider and with the patien t and he is in agreement to stay in the hospital for further testing. He will be admitted to telemetry as observation. He is going to have serial troponins and if acute c oronary syndrome is ruled out, he will undergo an exercise Myoview stress test. He will be continued on aspirin, statin, and metoprolol for now, but we will hold his metoprolol prio r to his stress test. 2. Hypertension: It is borderline elevated. At this point, I am going to continue his amlodipine, metoprolol, and irbesartan, and we will monitor his blood pressure. We may need to increase his amlo dipine depending on his blood pressure behavior. 3. Hyperlipidemia: We will check fasting lipid profile and continue lovastatin. 4. DVT prophylaxis: The patient has a score of 4 on the DVT Prophylaxis Risk Assessment Guide and h e will be started on subcutaneous heparin. 5. Code status is full. TIME SPENT: Approximately 60 minutes were spent for patient interview, [facility] records review, physical examination to complete the admission; more than half of this time was s pent [id number] with the patient and coordination of care. [id number]/[facility] #: [id number]
[2018-08-28] MEDS: Heparin VIAL(*) 5000 UNITS/ML VIAL (FIVE THOUSAND) SUBCUT SCH ×3 (05:11→20:55)
[2018-08-28] MEDS: Losartan TAB* 25 MG PO SCH (08:14)
[2018-08-28] MEDS: Aspirin 81 mg CHEW TAB* 81 MG TAB.CHEW PO SCH ×2 (08:14→20:55)
[2018-08-28] MEDS: amLODIPine TAB* 5 MG PO SCH (08:14)
[2018-08-28] MEDS: Furosemide TAB* 20 MG PO SCH ×3 (08:14→16:11)
[2018-08-28] MEDS: Fluticasone NASAL SPRAY 50MCG* 16 gm SPRAY BTL BOTH NARES SCH (08:15)
[2018-08-28] MEDS: Prenatal Vitamin TAB PO SCH (08:15)
[2018-08-28 08:30] LABS: HDL Cholesterol 37.4 mg/dL
--- NOTE | 2018-08-28 12:41 | PN ---
Subjective Date of Service: 08/28/18 Interval History: HOSPITALIST PROGRESS NOTE Patient seen and examined at bedside. Care reviewed and d/w Jaydon Hassan RN. He feels well today, denies any further episodes of chest discomfort. Family History: Unchanged from Admission Social History: Unchanged from Admission Past Medical History: Unchanged from Admission Objective Active Medications: Acetaminophen (Tylenol Tab*) 650 mg PO Q6H PRN PRN Reason: pain/fever Amlodipine Besylate (Norvasc Tab*) 5 mg PO DAILY [facility] Last Admin: 08/28/18 08:14 Dose: 5 mg Aspirin (Aspirin 81 Mg Chew Tab*) 81 mg PO BID [facility] Last Admin: 08/28/18 08:14 Dose: 81 mg Atorvastatin Calcium (Lipitor*) 10 mg PO BEDTIME [facility]; Protocol Last Admin: 08/27/18 20:03 Dose: 10 mg Cholecalciferol (Vitamin D Tab*) 400 unit PO BEDTIME [facility] Last Admin: 08/27/18 20:03 Dose: 400 unit Fluticasone Propionate (Flonase Nasal [place] 50mcg*) 2 spray BOTH NARES DAILY [facility] Last Admin: 08/28/18 08:15 Dose: 2 spray Furosemide (Lasix Tab*) 20 mg PO 0630,1200,1600 [facility] Last Admin: 08/28/18 11:25 Dose: 20 mg Heparin Sodium (Porcine) (Heparin Vial(*)) 5,000 units SUBCUT Q8HR [facility] Last Admin: 08/28/18 05:11 Dose: 5,000 units Losartan Potassium (Cozaar Tab*) 100 mg PO DAILY [facility] Last Admin: 08/28/18 08:14 Dose: 100 mg Multivitamins ( Vitamin Tab*) 1 tab PO QAM [facility] Last Admin: 08/28/18 08:15 Dose: 1 tab Vital Signs - 8 hr 08/28/18 08/28/18 08/28/18 07:18 07:27 11:17 Temperature 97.8 F 97.7 F Pulse Rate 59 55 Respiratory 20 20 20 Rate Blood Pressure 138/70 141/62 (mmHg) O2 Sat by Pulse 97 96 Oximetry Oxygen Devices in Use Now: None Appearance: Pleasant elderly gentleman sitting up in bed in NAD. Eyes: No Scleral Icterus Ears/Nose/Mouth/Throat: Mucous Membranes Moist Neck: Trachea Midline Respiratory: Symmetrical Chest Expansion and Respiratory Effort, Clear to Auscultation Cardiovascular: NL Sounds; No Murmurs; No JVD, RRR Neurological: Alert and Oriented x 3, NL Muscle Strength and Tone Result Diagrams: 08/27/18 12:43 08/27/18 12:42 Assess/Plan/Problems-Billing Assessment: Mr Gonzalez is a 78yo M with PMH of STIVEN on CPAP, obesity with BMI 37.7, HTN, HLD , carotid stenosis, who presented to ED with c/o chest discomfort. - Patient Problems (1) Chest pain Comment: - ACS is ruled out. - CTA was negative for dissection/PE. - Suspect pain could be musculoskeletal, since he cut down a tree earlier this week, but pain is not reproducible on palpation. - HEART score is 6 - high risk. - Plan for exercise Myoview stress test in AM (Metoprolol on hold and patient brought in his sneakers). (2) Hypertension Comment: - Controlled. - Continue Amlodipine and Losartan. - Metoprolol on hold for stress test. (3) Hyperlipidemia Comment: - Continue statin. (4) Sleep apnea Comment: - Continue CPAP. (5) DVT prophylaxis Comment: - SQ heparin. (6) Full code status Status and Disposition: OBV. Anticipate d/c tomorrow if stress test negative.
[2018-08-28] MEDS: Cholecalciferol TAB* 400 UNIT PO SCH (20:55)
[2018-08-28] MEDS: Atorvastatin* 10 MG TAB PO SCH (20:55)
[2018-08-29] MEDS: Heparin VIAL(*) 5000 UNITS/ML VIAL (FIVE THOUSAND) SUBCUT SCH (05:36)
[2018-08-29] MEDS: Furosemide TAB* 20 MG PO SCH ×2 (05:36→12:31)
[2018-08-29] MEDS: Fluticasone NASAL SPRAY 50MCG* 16 gm SPRAY BTL BOTH NARES SCH (08:40)
[2018-08-29] MEDS: Losartan TAB* 25 MG PO SCH (08:41)
[2018-08-29] MEDS: amLODIPine TAB* 5 MG PO SCH (08:42)
[2018-08-29] MEDS: Prenatal Vitamin TAB PO SCH (08:43)
[2018-08-29] MEDS: Aspirin 81 mg CHEW TAB* 81 MG TAB.CHEW PO SCH (08:43)
[2018-08-29 12:34] VITALS: BP 132/79
--- NOTE | 2018-08-30 02:27 | DS ---
CC: Dr. Coronado; Dr. Romero * DISCHARGE SUMMARY: DATE OF ADMISSION: 08/27/18 DATE OF DISCHARGE: 08/29/18 PRIMARY CARE PROVIDER: Dr. Coronado. DISCHARGE DIAGNOSIS: Chest pain with low probability cardiac stress test documented on 08/29/18. SECONDARY DIAGNOSES: 1. History of obstructive sleep apnea, on CPAP. 2. Hypertension. 3. Hyperlipidemia. 4. History of mildly dilated ascending aorta. 5. History of carotid artery stenosis. 6. History of spinal stenosis. 7. Status post L3-L5 laminectomy. 8. Avascular necrosis of the left knee, status post total left knee replacement in 2013. 9. History of cholecystectomy. 10. Status post TURP. MEDICATIONS AT DISCHARGE: Unchanged from admission and include: 1. Acetaminophen PM with diphenhydramine on a p.r.n. basis at night. 2. Norvasc 5 mg daily. 3. Aspirin 81 mg daily b.i.d. 4. Azelastine spray, 1 spray both nostrils daily p.r.n. 5. Vitamin D3 at 400 units at bedtime. 6. Fish oil 1 capsule daily. 7. Furosemide 20 mg 3 times a day. 8. Irbesartan 300 mg daily. 9. Claritin 10 mg daily. 10. Mevacor 40 mg at bedtime. 11. Toprol-XL 100 mg daily. 12. Mometasone spray, 2 sprays in both nostrils daily. 13. Multivitamin 1 tablet daily. 14. Systane eye drops, 1 drop daily p.r.n. to each eye. 15. Metamucil 6 capsules daily on a p.r.n. basis. LABORATORY DATA AND STUDIES PERFORMED DURING THE HOSPITAL STAY: Included: The patient's lipid profile showed triglycerides of 133, cholesterol total of 137, LDL 72, and HDL 37.4. TSH was noted to be 0.92 at admission. Cardiac stress test documented on 08/29/18 is of "low risk." There was no fixed or reversible perfusion defect with normal ejection fraction at 61% at stress. CT angiogram of the chest obtained on 08/27/18. Impression: "No evidence of thoracic aortic dissection. No evidence of pulmonary embolus is noted." HOSPITALIZATION COURSE: Mr. Gonzalez is a 78-year-old male who presented to the hospital complaining of chest pain as documented at history and physical on by Dr. Ruggiero. Shortly, his chest pain resolved by the time of his evaluation in the ED. The troponins continued to be negative. CT angiogram of the chest was unremarkable. The patient was waiting for the cardiac stress test that was obtained on Wednesday, on 08/29/18 and showed low probability. The patient at this point feels at his baseline and had no recurrence of chest pain when ambulating the hallways. He is going to be discharged to home with recommendation to follow up with his primary care provider in approximately 4 to 7 days. The patient is also scheduled to follow up with Dr. Romero within the next week. PHYSICAL EXAM AT THE TIME OF DISCHARGE: Blood pressure of 132/79, heart rate of 86 and regular, respiratory rate of 20, oxygen saturation is 97% on room air , temperature is 98.6. General: The patient is a very pleasant 78-year-old male, who is in no acute distress, alert, awake, and oriented x3. HEENT: Head : Atraumatic and normocephalic. Eyes: Pupils are equal, round, and reactive to light and accommodation. Oropharynx clear. Mucosa moist. Neck: Supple. No JVD, no bruits bilaterally. Cardiovascular: Regular rate and rhythm. No murmur. Respiratory: Clear to auscultation bilaterally. Abdomen: Soft and nontender. Bowel sounds are present in all 4 quadrants. Extremities: There is trace bilateral ankle edema. Positive +2 pulses bilaterally. There is no clubbing or cyanosis. On neuro evaluation, speech clear. Cranial nerves II through XII are grossly intact. Motor strength is 5/5 bilaterally. Please note that this is a short summary of the patient's hospital stay. Please refer to further medical records for details. TIME SPENT: Approximately 35 minutes was spent on the patient's discharge. [id number]/[facility] #: [id number] DEB
== END 2018-08-29 14:38 | disposition home or self-care (01) ==
LOC: ED 11:22 → MEDTELE 15:46
PROVIDERS: ADMIT Internal Medicine; ATTEND Internal Medicine
DX: R07.9 Chest pain, unspecified (principal); G47.33 Obstructive sleep apnea (adult) (pediatric); I10 Essential (primary) hypertension; E78.5 Hyperlipidemia, unspecified; I25.10 Atherosclerotic heart disease of native coronary artery without angina pectoris; I77.819 Aortic ectasia, unspecified site; M48.00 Spinal stenosis, site unspecified; Z98.890 Other specified postprocedural states; Z96.652 Presence of left artificial knee joint; Z90.49 Acquired absence of other specified parts of digestive tract; Z90.79 Acquired absence of other genital organ(s); Z79.82 Long term (current) use of aspirin; E66.9 Obesity, unspecified; Z68.36 Body mass index [BMI] 36.0-36.9, adult; Z87.442 Personal history of urinary calculi
CPT/HCPCS: 36415; 71045; 71275; 78452; 80053; 80061; 81003; 82550; 82553; 83036; 83605; 83735; 83880; 84436; 84443; 84484; 85025; 85610; 85730; 93005; 93017; 94660; 99284; A9270-GY; A9502; G0378; J1644; Q9967